=== PATIENT | female | born 1930 | race Caucasian/White ===

== ENCOUNTER 2018-06-17 16:06 | Inpatient (IN) ==
[~2018-06-17 16:06] MED LIST: LIDOCAINE 1% (10mg/ml) 2mL INJ PF SDV ID ONE
--- OUTSIDE RECORDS SUMMARY | 2018-06-17 18:12 | External Medical Summary | Continuity of Care Document ---
:1930 Author Organization [facility] Address [address] [place] [address] Care Team Providers Name Role Phone UNKNOWN Unavailable Unavailable Insurance Providers Payer Name Policy Number Subscriber Name Relationship Medicare [id number] Gudelia Ignacio Self / Same As Patient Bcbs - Plan 65 [id number] Gudelia Ignacio Self / Same As Patient Advance Directives Directive Response Recorded Date/Time Do You Have A Living Will? No 07/30/17 12:06pm Do You Have a DPOA? Yes 07/30/17 12:06pm Problems Active Problems Medical Problem Onset Date Status Trochanteric bursitis, right hip Unknown Acute Hip arthritis Unknown Acute Degenerative arthritis of hip Unknown Acute Diarrhea Unknown Acute Vomiting Unknown Acute Sepsis Unknown Acute Elevated troponin I level Unknown Acute Edema Unknown Chronic Diastolic dysfunction Unknown Chronic Surgical Problem Onset Date Status History of appendectomy Unknown Acute History of hysterectomy Unknown Acute History of cholecystectomy Unknown Acute History of kidney removal Unknown Acute Medications Current Home Medications Medication Dose Units Route Directions Days/Qty Instructions Start Date Valsartan 80 Mg 80 Mg Oral Daily 30 5 Ropinirole Hcl 3 3 Mg Oral Twice A Day Mg 5 Vit C/Vit 1 Cap Oral Daily E/Lutein/Min/[place] 5 -3 150 Mg-30 Unit-5 Mg-150 Mg Cholecalciferol 2,000 Unit Oral Daily (Vitamin D3) 2,000 5 Unit Calcium/Magnesium/ 1 Tab Oral Daily Zinc 1 Tab 5 Vitamin B Comp W-C 1 Tab Oral Daily 1 Tab 5 Omeprazole 20 Mg Oral Daily 30 (Prilosec Otc) 20 6 Mg Docusate Sodium 200 Mg Oral Daily for 30 (Colace) 100 Mg Constipation 7 Levothyroxine 100 Mcg Oral Daily for 30 Sodium 100 Mcg Hypothyroidism 7 Zolpidem Tartrate Unknown Oral Bedtime for 5MG=ONE HALF (Ambien) 10 Mg Dose Insomnia TABLET 7 Metoprolol 25 Mg Oral Daily for 15 Succinate (Toprol Hypertension 7 Xl) 50 Mg Acidophilus/[place] 1 Each Oral Three Times icus 1 Million Daily With Meals 7 Cell Furosemide 40 Mg 40 Mg Oral Twice A Day 60 7 Potassium Chloride 20 Meq Oral Daily 30 20 Meq 7 Past Home Medications Medication Directions Ordered Status Furosemide 20 Mg Tablet, 20 Mg Oral Daily for Diuretic 06/02/15 Discontinued Propranolol Hcl 10 Mg Tablet, 10 Mg Oral Twice A Day 06/02/15 Discontinued Propranolol Hcl (Propranolol Hcl 20 Mg) 20 Bedtime 06/02/15 Discontinued Mg Tablet, 20 Mg Oral Levothyroxine Sodium 75 Mcg Tablet, 75 Mcg Daily 06/02/15 Discontinued Oral Metoprolol Tartrate (Metoprolol Tartrate*) Twice A Day 08/01/16 Discontinued 25 Mg Tablet, 25 Mg Oral Bumetanide (Bumex) 1 Mg Tablet, 1 Mg Oral Daily 08/01/16 Discontinued Cephalexin Monohydrate (Keflex) 500 Mg Twice A Day 05/22/17 Discontinued Capsule, 500 Mg Oral Social History Social History Problem Response Recorded Date/Time History of Street Drugs? No 05/19/2017 1:15am Hx Alcohol Use No 05/19/2017 1:15am Query Response Start Date Stop Date Smoking status: Never smoker Hospital Discharge Instructions No hospital discharge instructions. Plan of Care Discharge Date 07/30/17 11:59pm Prescriptions See Medication Section Functional Status No functional status results. Allergies, Adverse Reactions, Alerts No known allergies. Immunizations No immunization records. Vital Signs Acute Vital Signs Vital Response Date/Time Temperature (Fahrenheit) 97.8 degrees F (97.6 - 99.5) 05/22/2017 5:16am Temperature (Celsius) 36.50 degrees C (36.4 - 37.5) 05/22/2017 5:42pm Pulse Pulse Rate 72 bpm (60 - 100) 05/22/2017 5:42pm Respiratory Rate 18 bpm (10 - 24) 05/22/2017 5:42pm Oxygen Saturation O2 Sat by Pulse Oximetry 95 % (93 - 100) 05/22/2017 5:42pm Blood Pressure 149/64 mm Hg 05/22/2017 5:42pm Blood Pressure Mean 86 mm Hg 05/22/2017 5:42pm Ambulatory Vital Signs Vital Response Date/Time Height 5 ft 2 in 07/24/2017 10:17am Weight 213 lbs 07/24/2017 10:17am Blood Pressure, Sitting, Left Arm 150/48 mm Hg 07/24/2017 10:17am Pulse Rate 60 bpm 07/24/2017 10:17am Body Surface Area 2.11 m2 07/24/2017 10:17am Body Mass Index 39.0 kg/m2 07/24/2017 10:17am Pulse Oximetry Pulse Oximetry 07/24/2017 10:17am Results Laboratory Results Test Name Result Units Flags Reference Collection Result Comments Date/Time Date/Time Prothrombin 11.4 seconds 9.0-11.5 05/19/2017 05/19/2017 Time 7:14am 8:05am Prothromb 1.1 0.9-1.1 05/19/2017 05/19/2017 INR reference interval applies to patients not on Time 7:14am 8:05am anticoagulant therapy. Internationa l Ratio The INR is a calculated value and is used to guide oral anticoagulation therapy. Recommended INR Range Moderate Intensity Warfarin Therapy 2.0 - 3.0 Higher Intensity Warfarin Therapy 2.5 - 3.5 Activated 28 seconds 22-34 05/19/2017 05/19/2017 This test has not been validated for monitoring Partial 7:14am 8:05am unfractionated heparin therapy. For testing that is Thromboplast validated for this type of therapy, please refer to Heparin [place] [address]. White Blood 8.2 1000/cmm 3.8-10.8 05/22/2017 05/22/2017 Count 4:55am 5:38am Red Blood 3.43 MIL/uL L 3.80-5.10 05/22/2017 05/22/2017 Count 4:55am 5:38am Hemoglobin 9.6 g/dL L 11.7-15.5 05/22/2017 05/22/2017 4:55am 5:38am Hematocrit 29.4 % L 35.0-45.0 05/22/2017 05/22/2017 4:55am 5:38am Mean 86 fL 80-100 05/22/2017 05/22/2017 Corpuscular 4:55am 5:38am Volume Mean 28 pg 27-33 05/22/2017 05/22/2017 Corpuscular 4:55am 5:38am Hemoglobin Mean 33 g/dL 32-36 05/22/2017 05/22/2017 Corpuscular 4:55am 5:38am Hemoglobin Concent Red Cell 14.8 % 11.0-15.0 05/22/2017 05/22/2017 Distribution 4:55am 5:38am Width Platelet 231 1000/cmm 140-400 05/22/2017 05/22/2017 Count 4:55am 5:38am Mean 9.1 fL 8.7-11.9 05/22/2017 05/22/2017 Platelet 4:55am 5:38am Volume Granulocytes 67.1 % 05/22/2017 05/22/2017 (%) 4:55am 5:38am Lymphocytes 20.3 % 05/22/2017 05/22/2017 % 4:55am 5:38am Monocytes % 10.2 % 05/22/2017 05/22/2017 4:55am 5:38am Eosinophils 2.0 % 05/22/2017 05/22/2017 % 4:55am 5:38am Basophils % 0.4 % 05/22/2017 05/22/2017 4:55am 5:38am Granulocytes 5.48 1000/uL 1.50-7.80 05/22/2017 05/22/2017 # 4:55am 5:38am Lymphocytes 1.66 1000/uL 0.85-3.90 05/22/2017 05/22/2017 # 4:55am 5:38am Monocytes # 0.83 1000/uL 0.20-0.95 05/22/2017 05/22/2017 4:55am 5:38am Eosinophils 0.16 1000/uL 0.01-0.50 05/22/2017 05/22/2017 # 4:55am 5:38am Basophils # 0.03 1000/uL 0.00-0.20 05/22/2017 05/22/2017 4:55am 5:38am Urine Color DARK YELLOW * YELLOW 05/19/2017 05/19/2017 7:55am 8:12am Urine SLIGHTLY * CLEAR 05/19/2017 05/19/2017 Appearance CLOUDY 7:55am 8:12am Urine 1.025 05/19/2017 05/19/2017 Specific 7:55am 8:12am Reference Range [place] <=1.005-1.035 Urine pH 5.0 5.0-8.0 05/19/2017 05/19/2017 7:55am 8:12am Urine 30 mg/dL * NEGATIVE 05/19/2017 05/19/2017 Protein 7:55am 8:12am Urine NEGATIVE mg/dL NEGATIVE 05/19/2017 05/19/2017 Glucose 7:55am 8:12am Urine NEGATIVE mg/dL NEGATIVE 05/19/2017 05/19/2017 Ketones 7:55am 8:12am Urine Blood NEGATIVE NEGATIVE 05/19/2017 05/19/2017 7:55am 8:12am Urine NEGATIVE NEGATIVE 05/19/2017 05/19/2017 Nitrite 7:55am 8:12am Urine 1+ * NEGATIVE 05/19/2017 05/19/2017 Leukocyte 7:55am 8:12am Esterase Urine NEGATIVE NEGATIVE 05/19/2017 05/19/2017 Bilirubin 7:55am 8:12am Urine 0.2 mg/dL 0.2-1.0 05/19/2017 05/19/2017 Urobilinogen 7:55am 8:12am N/A No NO 05/19/2017 05/19/2017 7:55am 8:12am Urine WBC 20-40 /HPF * NONE-<=5 05/19/2017 05/19/2017 7:55am 8:48am Urine RBC 3-10 /HPF * NONE-<=2 05/19/2017 05/19/2017 7:55am 8:48am Urine 0-5 /HPF NONE-<=5/H 05/19/2017 05/19/2017 Epithelial P 7:55am 8:48am Cells Urine 6-10 /LPF * NONE-0-1 05/19/2017 05/19/2017 Hyaline 7:55am 8:48am Casts Urine 1-3 /LPF * NONE SEEN 05/19/2017 05/19/2017 Granular 7:55am 8:48am Casts Urine Waxy NONE SEEN /LPF NONE SEEN 05/19/2017 05/19/2017 Casts 7:55am 8:48am Urine White NONE SEEN /LPF NONE SEEN 05/19/2017 05/19/2017 Blood Cell 7:55am 8:48am Casts Urine Red NONE SEEN /LPF NONE SEEN 05/19/2017 05/19/2017 Blood Cell 7:55am 8:48am Casts Urine MANY /HPF * NONE SEEN 05/19/2017 05/19/2017 Bacteria 7:55am 8:48am Urine Mucus MODERATE /LPF NONE 05/19/2017 05/19/2017 7:55am 8:48am Urine NONE SEEN /HPF NONE SEEN 05/19/2017 05/19/2017 Amorphous 7:55am 8:48am Sediment Urine Yeast NONE SEEN /HPF NONE SEEN 05/19/2017 05/19/2017 7:55am 8:48am Urine NONE SEEN /HPF NONE SEEN 05/19/2017 05/19/2017 Trichomonas 7:55am 8:48am Urine NONE SEEN NONE SEEN 05/19/2017 05/19/2017 Crystals 7:55am 8:48am Sodium Level 138 mmol/L 135-146 05/22/2017 05/22/2017 4:55am 5:19am Potassium 3.6 mmol/L 3.5-5.0 05/22/2017 05/22/2017 Level 4:55am 5:19am Chloride 102 mmol/L 98-110 05/22/2017 05/22/2017 Level 4:55am 5:19am Carbon 21.6 mmol/L 19.0-30.0 05/22/2017 05/22/2017 Dioxide 4:55am 5:19am Level Anion Gap 14 7-17 05/22/2017 05/22/2017 4:55am 5:19am Glucose 100 mg/dL H 65-99 05/22/2017 05/22/2017 Level 4:55am 5:19am Blood Urea 10 mg/dL 7-05/22/2017 05/22/2017 Nitrogen 4:55am 5:19am Creatinine 0.90 mg/dL H 0.60-0.88 05/22/2017 05/22/2017 4:55am 5:19am Estimated 58 L >60 05/22/2017 05/22/2017 GFR 4:55am 5:19am Units: mL/min/1.73m2) (Non- Estimated 67 >60 05/22/2017 05/22/2017 GFR ( 4:55am 5:19am Units: mL/min/1.73m2) [place]) BUN/Creatini 11 7-05/22/2017 05/22/2017 ne Ratio 4:55am 5:19am Estimated 45.33 ml/min >30 05/22/2017 05/22/2017 Adjusted body GFR 4:55am 5:19am weight used for (Cockcroft-G calculation. akil) Calculated 285 mOSM/kg 280-300 05/22/2017 05/22/2017 Osmolality 4:55am 5:19am Total 6.3 g/dL 6.1-8.1 05/19/2017 05/19/2017 Protein 6:28am 7:07am Albumin 2.9 g/dL L 3.6-5.1 05/19/2017 05/19/2017 6:28am 7:07am Globulin 3.4 g/dL 1.9-3.7 05/19/2017 05/19/2017 6:28am 7:07am Calcium 8.3 mg/dL L 8.6-10.2 05/22/2017 05/22/2017 Level 4:55am 5:19am Corrected 9.2 mg/dL 8.6-10.2-c 05/19/2017 05/19/2017 Calcium alc 6:28am 7:07am Phosphorus 3.2 mg/dL 2.1-4.3 05/19/2017 05/19/2017 Level 7:14am 7:48am Total 0.7 mg/dL 0.2-1.2 05/19/2017 05/19/2017 Bilirubin 6:28am 7:07am Magnesium 2.0 mg/dL 1.5-2.5 05/22/2017 05/22/2017 Level 4:55am 5:19am Alkaline 117 U/L 33-130 05/19/2017 05/19/2017 Phosphatase 6:28am 7:07am Aspartate 38 U/L H 10-35 05/19/2017 05/19/2017 Amino Transf 6:28am 7:07am (AST/SGOT) Alanine 25 U/L 6-29 05/19/2017 05/19/2017 Aminotransfe 6:28am 7:07am rase (ALT/SGPT) AST/ALT 1.520 0.10-40.00 05/19/2017 05/19/2017 Ratio 6:28am 7:07am Thyroid 0.52 uIU/mL 0.40-4.50 05/22/2017 05/22/2017 Stimulating 4:55am 5:31am Hormone (TSH) Troponin T 0.01 ng/mL <0.10 05/19/2017 05/19/2017 Based on WHO criteria for the definition of AMI, the cutoff 7:55am 8:16am (clinical discriminator) value for troponin T is 0.1 ng/mL. Due to the release of kinetics of troponin T, a negative result within the first hours of the onset of symptoms does not rule out myocardial infarction with certainty. If suspected, repeat the test at appropriate intervals. L-Lactate 1.3 mmol/L 0.4-1.8 05/19/2017 05/19/2017 6:28am 7:19am Methicillin- NEGATIVE NEGATIVE 05/19/2017 05/19/2017 Resist S. 3:07am 4:22am aureus Screen Staphylococc NEGATIVE NEGATIVE 05/19/2017 05/19/2017 us aureus 3:07am 4:22am Screen Serology Potential interfering substances include 05/19/20172016 Comments 3:07am 4:22am Anefrin [place] NasalCrom Mele-Synephrine Saline Nasal Moisturizing [place] Zicam Nasal Gel Nasonex Flonase Rhinolast Use of those substances may hinder the replication of DNA which could cause invalid or erroneous results. Procalcitoni 63.18 ng/mL H 0.00-0.09 05/19/2017 05/19/2017 n 6:28am 8:11am </=0.5 ng/mL: Low risk of severe sepsis and/or septic shock. >0.5 -- </=2.0 ng/mL: Moderate risk for progression to severe systemic infection. >2.0 ng/mL: High risk of severe sepsis and or septic shock. Procalcitonin concentrations between 0.5 and 2.0 ng/mL should be interpreted taking into account the patients history. It is recommended to retest PCT within 6-24 hours if any concentrations <2 ng/mL are obtained. Procedures Procedure Status Date Provider(s) 12-lead electrocardiogram Active 05/19/17 Chavarria,Memo C DO 12-lead electrocardiogram Active 05/19/17 Chavarria,Memo C DO 12-lead electrocardiogram Active 05/19/17 Chavarria,Memo C DO X-ray of chest, PA and lateral views Active 05/19/17 Chavarria,Memo C DO 12-lead electrocardiogram Active 05/19/17 Chavarria,Memo C DO 12-lead electrocardiogram Active 05/19/17 Chavarria,Memo C DO 12-lead electrocardiogram Active 05/19/17 Chavarria,Memo C DO 12-lead electrocardiogram Active 05/19/17 Chavarria,Memo C DO 12-lead electrocardiogram Active 05/19/17 Chavarria,Memo C DO 12-lead electrocardiogram Active 05/19/17 Chavarria,Memo C DO 12-lead electrocardiogram Active 05/19/17 Chavarria,Memo C DO 12-lead electrocardiogram Active 05/19/17 Chavarria,Memo C DO 12-lead electrocardiogram Active 05/19/17 Chavarria,Memo C DO 12-lead electrocardiogram Active 05/19/17 Chavarria,Memo C DO 12-lead electrocardiogram Active 05/19/17 Chavarria,Memo C DO 12-lead electrocardiogram Active 05/19/17 Chavarria,Memo C DO 12-lead electrocardiogram Active 05/19/17 Chavarria,Memo C DO 12-lead electrocardiogram Active 05/19/17 Chavarria,Memo C DO 12-lead electrocardiogram Active 05/19/17 Chavarria,Memo C DO 12-lead electrocardiogram Active 05/19/17 Chavarria,Memo C DO 12-lead electrocardiogram Active 05/19/17 Chavarria,Memo C DO 12-lead electrocardiogram Active 05/19/17 Chavarria,Memo C DO 12-lead electrocardiogram Active 05/19/17 Chavarria,Memo C DO 12-lead electrocardiogram Active 05/19/17 Chavarria,Memo C DO 12-lead electrocardiogram Active 05/19/17 Memo Chavarria DO X-ray of chest, single view Active 05/19/17 Memo Chavarria DO Venous duplex scan of right lower extremity Active 05/22/17 Krista Medina DO Encounters Encounter Location Arrival/Admit Date Discharge/Depart Date Attending Provider Departed Clinic [facility] 07/30/17 12:06pm 07/30/17 11:59pm Rachel De Luna [facility] Office Visit [facility] 07/24/17 9:15am [facility] [place] Registered [facility] 07/24/17 9:15am [facility] Discharged [facility] 05/19/17 7:23am 05/22/17 5:45pm [facility] DO
--- OUTSIDE RECORDS SUMMARY | 2018-06-17 18:12 | External Medical Summary | Continuity of Care Document ---
:1930 Author Organization [facility] Address [address] [place] [address] Care Team Providers Name Role Phone Marie Evangelista APRN Unavailable Unavailable Insurance Providers Payer Name Policy Number Subscriber Name Relationship Medicare [id number] Gudelia Ignacio Self / Same As Patient Bcbs - Plan 65 [id number] Gudelia Ignacio Self / Same As Patient Advance Directives Directive Response Recorded Date/Time Do You Have A Living Will? No 05/19/17 1:17am Do You Have a DPOA? Yes 05/21/17 4:26pm Chief Complaint and Reason for Visit Chief Complaint SEPSIS Reason for Visit History of kidney removal Hip arthritis Degenerative arthritis of hip Sepsis Elevated troponin I level Edema Diastolic dysfunction Problems Active Problems Medical Problem Onset Date [...] Units Route Directions Days/Qty Instructions Start Date Furosemide 20 Mg 20 Mg Oral Daily for Diuretic 5 Valsartan 80 Mg 80 Mg Oral Daily 30 5 Ropinirole Hcl 3 3 Mg Oral Twice A Day Mg 5 Vit C/Vit 1 Cap Oral Daily E/Lutein/Min/[place] 5 -3 150 Mg-30 Unit-5 Mg-150 Mg Cholecalciferol 2,000 Unit Oral Daily (Vitamin D3) 2,000 5 Unit Calcium/Magnesium/ 1 Tab Oral Daily Zinc 1 Tab 5 Vitamin B Comp W-C 1 Tab Oral Daily 1 Tab 5 Omeprazole 20 Mg Oral Daily (Prilosec Otc) 20 6 Mg Docusate Sodium 200 Mg Oral Daily for (Colace) 100 Mg Constipation 7 Levothyroxine 100 Mcg Oral Daily for Sodium 100 Mcg Hypothyroidism 7 Zolpidem Tartrate Unknown Oral Bedtime for 5MG=ONE HALF (Ambien) 10 Mg Dose Insomnia TABLET 7 Metoprolol 25 Mg Oral Daily for Succinate (Toprol Hypertension 7 Xl) 50 Mg Acidophilus/[place] 1 Each Oral Three Times icus 1 Million Daily With Meals 7 Cell Cephalexin 500 Mg Oral Twice A Day 20 Use for Monohydrate days 7 (Keflex) 500 Mg Past Home Medications Medication Directions Ordered Status Propranolol Hcl 10 Mg Tablet, 10 Mg Oral Twice A Day 06/02/15 Discontinued Propranolol Hcl (Propranolol Hcl 20 Mg) 20 Mg Bedtime 06/02/15 Discontinued Tablet, 20 Mg Oral Levothyroxine Sodium 75 Mcg Tablet, 75 Mcg Oral Daily 06/02/15 Discontinued Metoprolol Tartrate (Metoprolol Tartrate*) 25 Mg Twice A Day 08/01/16 Discontinued Tablet, 25 Mg Oral Bumetanide (Bumex) 1 Mg Tablet, 1 Mg Oral Daily 08/01/16 Discontinued Social History Social History Problem Response Recorded Date/Time History of Street Drugs? No 05/19/2017 1:15am Hx Alcohol Use No 05/19/2017 1:15am Query Response Start Date Stop Date Smoking status: Never smoker Hospital Discharge Instructions Instructions Discharge Discharge/Dismiss patient: Dismiss/release patient order: Home Discharge instructions: Patient to schedule followup with PCP in 1 week Plan of Care Discharge Date 05/22/17 5:45pm Disposition HOME, ROUTINE DIS/ASST LIVING Instructions/Education Provided CORE MEASURES FOR D/C - [facility] Cephalexin (By mouth) Probiotic (By mouth) Cellulitis (GEN) Prescriptions See Medication Section Care Plan and Goals See Discharge Instructions Section Functional Status No functional status results. [...] Pressure Mean 86 mm Hg 05/22/2017 5:42pm Height 5 ft 2.01 in Weight 226 lb Body Mass Index 41.0 kg/m^2 Ambulatory Vital Signs Vital Response Date/Time Height 5 ft 1 in 08/01/2016 11:27am Weight 214 lbs 08/01/2016 11:27am Temperature, Oral 98.6 degrees F 08/01/2016 11:27am Blood Pressure, Sitting, Right Arm 125/49 mm Hg 08/01/2016 11:27am Pulse Rate 65 bpm 08/01/2016 11:27am Respiration Rate 16 bpm 08/01/2016 11:27am Body Surface Area 2.10 m2 08/01/2016 11:27am Body Mass Index 40.4 kg/m2 08/01/2016 11:27am Pulse Oximetry Pulse Oximetry 08/01/2016 11:27am Results Laboratory Results Test Name Result Units [...] to Heparin [place] [address]. White Blood 8.2 1000/cmm 3.8-10.8 05/22/2017 05/22/2017 [...] 05/19/2017 05/19/2017 Specific 7:55am 8:12am Reference Range [place] <=1.005-1.035 Urine pH 5.0 5.0-8.0 05/19/2017 05/19/2017 [...] 05/22/2017 GFR ( 4:55am 5:19am Units: mL/min/1.73m2) [place]) BUN/Creatini 11 7-25 05/22/2017 05/22/2017 ne Ratio 4:55am 5:19am Estimated 45.33 [...] substances include 05/19/20172016 Comments 3:07am 4:22am Anefrin [place] NasalCrom Mele-Synephrine Saline Nasal Moisturizing [place] Zicam Nasal Gel Nasonex Flonase Rhinolast Use [...] Status Date Provider(s) 12-lead electrocardiogram Active 05/19/17 ChavarriaMemo C DO 12-lead electrocardiogram Active 05/19/17 ChavarriaMemo C DO 12-lead electrocardiogram Active 05/19/17 ChavarriaMemo C DO X-ray of chest, PA and lateral views Active 05/19/17 ChavarriaMemo C DO 12-lead electrocardiogram Active 05/19/17 Chavarria,Memo C DO 12-lead electrocardiogram Active 05/19/17 ChavarriaMemo C DO 12-lead electrocardiogram Active 05/19/17 ChavarriaMemo C DO 12-lead electrocardiogram Active 05/19/17 ChavarriaMemo C DO 12-lead electrocardiogram Active 05/19/17 Chavarria,Memo C DO 12-lead electrocardiogram Active 05/19/17 Chavarria,Memo C DO 12-lead electrocardiogram Active 05/19/17 Chavarria,Memo C DO 12-lead electrocardiogram Active 05/19/17 Chavarria,Memo C DO 12-lead electrocardiogram Active 05/19/17 Chavarria,Memo C DO 12-lead electrocardiogram Active 05/19/17 Chavarria,Memo C DO 12-lead electrocardiogram Active 05/19/17 Chavarria,Memo C DO 12-lead electrocardiogram Active 05/19/17 DeonMemo C DO 12-lead electrocardiogram Active 05/19/17 DeonMemo C DO 12-lead electrocardiogram Active 05/19/17 ChavarriaMemo C DO 12-lead electrocardiogram Active 05/19/17 ChavarriaMemo C DO 12-lead electrocardiogram Active 05/19/17 DeonMemo C DO 12-lead electrocardiogram Active 05/19/17 DeonMemo C DO 12-lead electrocardiogram Active 05/19/17 ChavarriaMemo C DO 12-lead electrocardiogram Active 05/19/17 DeonMemo C DO 12-lead electrocardiogram Active 05/19/17 Christophe Chavarrialas C DO 12-lead electrocardiogram Active 05/19/17 Memo Chavarria C DO X-ray of chest, single view Active 05/19/17 Memo Chavarria DO Venous duplex scan of right lower extremity Active 05/22/17 Krista Medina DO Encounters Encounter Location Arrival/Admit Date Discharge/Depart Date Attending Provider Discharged [facility] 05/19/17 7:23am 05/22/17 5:45pm [facility] Recent Diagnosis Hip arthritis Degenerative arthritis of hip Sepsis Elevated troponin I level Edema Diastolic dysfunction
[2018-06-17] MEDS ORDERED: ACETAMINOPHEN 325 MG TABLET PO PRN (18:42)
[2018-06-17] MEDS ORDERED: POLYETHYL GLYCOL 3350 17gm PACKET PO PRN (18:42)
[2018-06-17] MEDS ORDERED: SENNA + DOCUSATE TABLET PO PRN (18:42)
[2018-06-17] MEDS ORDERED: SALINE FLUSH 10ml SYRINGE IV PRN (18:42)
[2018-06-17] MEDS ORDERED: ONDANSETRON 4 MG/2 ML INJECTION IVP PRN (18:42)
--- NOTE | 2018-06-17 18:49 | Orthopedic Consult Note ---
Orthopedic Consultation HPI - Consultation Info Consult Date: 06/17/18 Attending Physician: Ryan Locke MD - History of Present Illness Gudelia is an 87 y/o female who tripped and fell in a parking lot landing on her left side with immediate pain. She was seen at [facility] in [place] where xrays revealed Left Intertrochanteric hip fracture. Patient also complained of left elbow pain, concern for questionable radial head fracture films reviewed and negative for fracture. 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 She last ate at 1100 today and is not blood thinners. Hospitalist was notified whom agreed to admit patient for medical clearance with consultation to Ortho. Patient NPO for anticipated ORIF of Left IT fracture this evening. History of Right GAY. Review of Systems - Constitutional Constitutional: Present: as per HPI - Musculoskeletal Musculoskeletal: Present: as per HPI Medications Allergies Allergy/AdvReac Type Severity Reaction Status Date / Time No Known Allergies Allergy Verified 06/17/18 18:53 Exam - Constitutional General: cooperative, no acute distress Nutritional Appearance: average body habitus Orientation: alert, oriented x3 - LUE General: no obvious deformity, other (tenderness to palpation over lateral proximal ulna, no tenderness with palpation over radial head) Postoperative Appearance: neurovascullary intact to extremities Neurological: no deficits, normal to light touch Vascular: radial pulse within normal limits - LLE General: other (left leg shortened ) Postoperative Appearance: neurovascullary intact to extremities Neurological: no deficits, normal to light touch Vascular: dorsalis pedis pulse within normal limits - Respiratory Respiratory Exam: non-labored - Cardiac Cardiovascular exam: pedal pulses intact Impression and Recommendation (1) Intertrochanteric fracture of left hip Current visit: Yes Qualifiers: Encounter type: initial encounter Fracture type: closed Status: Acute Dr. Locke discussed need for surgical intervention with ORIF (gamma nail) of left IT hip fracture, including risk, complications, and possibly need for further surgery if fails. Patient NPO for anticipated surgery yet this evening if medically cleared by hospitalist. (2) Left forearm pain Current visit: Yes Status: Acute Xrays negative, nontender over radial head with palpation. Pain likely contusion left lateral forearm. Will monitor, if pain increases will consider repeating films or sling for comfort. Hospital Course Summary Disclaimer: The visit summary below is not to be considered part of the above Progress Note.
[2018-06-17 18:52] VITALS: BMI 39.3
--- NOTE | 2018-06-17 18:53 | History & Physical Report ---
History of Present Illness Date: 06/18/18 Chief complaint: left hip pain HPI: A pleasant 87-year-old female patient of Dr. Vazquez who also follows up with brew house supervisor, Dr. Klein presented to emergency room at [facility] in [place], [place] status post a fall this afternoon. Patient was walking and reportedly tripped on the concrete pavement and fell on her left side. X-ray performed at [facility] emergency room shows left-sided intertrochanteric femur neck fracture and questionable nondisplaced fracture of head of radius on the left elbow x-ray. No reported head injury, no loss of consciousness, no dizziness, no blurred vision, no syncope/near syncope, no neck pain, no neck stiffness, no subjective fever, no chills, no increased sweating, no nausea, no vomiting, no abdominal pain, no flank pain, no dysuria, no burning urination. Patient states she was otherwise in good health until she had her unfortunate fall. Incidentally, patient had a fall 2 years ago and underwent right total hip replacement surgery at Hospital in [place], [place]. Review of Systems Review of systems: Positive left hip pain, positive left elbow pain. No reported head injury, no loss of consciousness, no dizziness, no blurred vision, no syncope/near syncope, no neck pain, no neck stiffness, no subjective fever, no chills, no increased sweating, no nausea, no vomiting, no abdominal pain, no flank pain, no dysuria, no burning urination. Past Medical History Medical History Updates: History of CKD stage III. Restless leg syndrome. Hypertension. Osteoarthritis. Chronic anemia. Hypothyroidism. GERD. Chronic lower extremity edema Surgical History: Hysterectomy with appendectomy. 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 Cholecystectomy. Tonsillectomy. Right-sided total hip replacement surgery 2 years ago Family History: Patient's maternal aunt had a history of diabetes mellitus. No reported family history of coronary artery disease, no reported cancer. Family History: As Above - Social History Smoking status: Never smoker second hand exposure: No Substance use type: does not use Alcohol intake: never Housing: house Current occupational exposures/hazards: No Does patient use chewing tobacco?: No Medications Allergies Allergy/AdvReac Type Severity Reaction Status Date / Time No Known Allergies Allergy Verified 06/17/18 18:53 Exam - Additional findings Additional findings: General: Alert, awake, oriented x3. In mild painful distress. Head: Pupils equal, round, reactive to light and accommodation. Extraocular movements intact. Neck: No elevation in JVP. No pharyngeal erythema noted. Chest: The patient does not use accessory muscles for breathing. Lungs: Breath sounds audible on auscultation bilateral lung restrepo. No wheezing , no rhonchi, no crepitations, no crackles. No pleural rub. CVS: S1, S2 heard on auscultation. Normal rate and rhythm. No murmur, no S3/S4 gallops. Abdomen: Soft, nontender, no distention. Transverse midline scar and longitudinal suprapubic scar, well-healed noted. Bowel sounds appreciated on auscultation. Skin: No rashes, no induration, no erythema. Capillary refill less than 4 seconds. Extremities: Left extremity shortened. Nonpitting pedal edema bilateral lower extremities. No calf tenderness bilaterally. Palpable dorsalis pedis and posterior tibial pulses bilateral lower extremities. Results - Labs CBC & Chem 7: 06/18/18 04:37 06/18/18 04:37 Labs: Labs performed at [facility] in [place], [place] on 06/17/2018 prior to transfer: CMP: Glucose 106, BU and 17, serum creatinine 1.47, GFR 33, sodium 140, potassium 3.4 , chloride 102, carbon dioxide 30, calcium 8.5, AST 22, AST 17, alkaline phosphatase 103, total protein 6.6, albumin 3.1, total bilirubin 0.5 CBC with differential: WBC 5.9, hemoglobin 10.9, hematocrit 34.8, MCV 84, RDW 18.8, platelets 308, neutrophils 58%, lymphocytes 29%, nucleated RBCs 0 - Impressions [facility] [place], [place] on 06/17/2018 prior to transfer - Left hip x-ray shows nondisplaced acute left femoral neck and intertrochanteric fracture Left elbow x-ray shows findings concerning for nondisplaced radial head fracture. Assessment and Plan Assessment and Plan: Assessment: Left femoral neck intertrochanteric fracture, acute Hypertension Hypothyroidism Chronic kidney disease stage III, status post remote nephrectomy Restless leg syndrome Osteoarthritis Chronic anemia Chronic lower extremity edema, on diuretics Plan: Patient admitted to medical floor under the hospitalist service. Orthopedic surgery, Dr. Locke has been consulted. Patient will be in bedrest, nothing by mouth for now. Labs performed at outside facility shows serum potassium of 3.4, will be replaced. Stat CBC, CMP, mag, phosphorus, urinalysis with culture if indicated ordered, results reviewed. EKG performed at outside facility shows normal sinus rhythm with concern for first-degree AV block. No acute ST/T changes. IV Protonix 40 mg daily. IV fluids half-normal saline with 20 mEq potassium chloride at 75 ml per hour. Plan to restart home medication ropinirole, Synthroid, oral metoprolol succinate from tomorrow. IV hydralazine 10 mg every 6 hours as needed for systolic blood pressure greater than 160. Based on available information, patient is low risk candidate for intermediate risk surgery. This was reported to OR nurse of Dr. Locke later in the day. DVT Prophylaxis: SCD's GI Prophylaxis: Protonix Resuscitation Status: Full Code - Physician Narrative Narrative: Date: 06/17/18 Time: 1850 Hospital Course Summary Disclaimer: The visit summary below is not to be considered part of the above Progress Note. Hospital Course: Patient admitted to medical floor under the hospitalist service. Orthopedic surgery, Dr. Locke has been consulted. Patient will be in bedrest, nothing by mouth for now. Labs performed at outside facility shows serum potassium of 3.4, will be replaced. Stat CBC, CMP, mag, phosphorus, urinalysis with culture if indicated ordered. EKG performed at outside facility shows normal sinus rhythm with concern for first-degree AV block. No acute ST/T changes. IV Protonix 40 mg daily. IV fluids half-normal saline with 20 mEq potassium chloride at 75 ml per hour. Based on available information, patient is low risk candidate for intermediate risk surgery. Lab results ordered at our facility awaited.
[2018-06-17] MEDS ORDERED: HYDRALAZINE 20 MG/ML INJECTION IVP PRN (19:08)
[2018-06-17] MEDS ORDERED: CEFAZOLIN 1 G INJECTION IVP ONE (19:44)
[2018-06-17] MEDS ORDERED: LIDOCAINE 1% (10mg/ml) 30ml SDV INJ ONE (19:47)
[2018-06-17] MEDS ORDERED: NS 1,000 ML IV SCH (20:00)
[2018-06-17] MEDS: 1/2 NS with KCL 20mEq 1,000 ML IV SCH ×2 (20:33→23:52)
[2018-06-17] MEDS ORDERED: FentaNYL 250 MCG/5 ML INJECTION ONE (20:58)
[2018-06-17] MEDS ORDERED: MIDAZOLAM 2mg/2ml INJECTION ONE (20:59)
[2018-06-17] MEDS: MORPHINE SULFATE 2mg INJECTION IVP PRN ×2 (21:04→23:51)
[2018-06-17] MEDS ORDERED: PROPOFOL 20 ML ONE (21:45)
[2018-06-17] MEDS ORDERED: BUPIVACAINE 0.5% (5mg/ml) PF 30ml INJ SDV ID ONE (22:05)
[2018-06-17] MEDS ORDERED: LIDOCAINE 1% (10mg/ml) 30ml SDV INJ INFIL ONE (22:15)
--- NOTE | 2018-06-17 22:32 | Anesthesia Preoperative Report ---
Anesthesia Preoperative Record - Date and Time Date: 06/17/18 Preoperative Diagnosis: Lt Hip FX NPO Since Date: 06/17/18 (>8hrs) NPO Since Time: 00:00 Allergies/Adverse Reactions: Allergies Allergy/AdvReac Type Severity Reaction Status Date / Time No Known Allergies Allergy Verified 06/17/18 18:53 - Vital Signs Vital Signs: Temperature 97.1 F 06/17/18 21:04 Pulse Rate 89 06/17/18 21:04 Respiratory Rate 14 06/17/18 21:13 Blood Pressure 154/67 H 06/17/18 21:04 Pulse Oximetry 92 06/17/18 21:13 Height and Weight: Height 5 ft 2 in Weight 97.6 kg Body Mass Index 39.3 - Medications Inpatient Medications: Current Medications Acetaminophen (Tylenol) 325 - 650 mg PO Q5H PRN PRN Reason: Discomfort Bupivacaine HCl (Marcaine Pf 0.5% Inj) 30 ml ID O ONE Stop: 06/17/18 22:06 Cefazolin Sodium (Kefzol 1 Gm Vial) 2 g IVP PREOP ONE Stop: 06/17/18 19:45 Last Admin: 06/17/18 21:32 Dose: 2 g Hydralazine HCl (Apresoline) 10 mg IVP Q6HR PRN PRN Reason: Hypertension Potassium Chloride/Sodium Chloride (1/2 Ns With Kcl 20meq Premix) 1,000 mls @ 75 mls/hr IV .[id number] [facility] Last Admin: 06/17/18 20:33 Dose: Not Given Sodium Chloride (Normal Saline) 1,000 mls @ 50 mls/hr IV .Q20H [facility] Last Admin: 06/17/18 19:48 Dose: 50 mls/hr Lidocaine HCl (Xylocaine-Mpf 1% Vial) 1 mg ID O ONE Stop: 06/17/18 06:01 Last Admin: 06/17/18 19:48 Dose: Not Given Lidocaine HCl (Xylocaine-Mpf 1%) 30 ml INFIL O ONE Stop: 06/17/18 22:16 Morphine Sulfate (Morphine Sulf 2 Mg Inj) 1 - 2 mg IVP Q2H PRN PRN Reason: Pain Last Admin: 06/17/18 21:04 Dose: 2 mg Ondansetron HCl (Zofran) 4 mg IVP Q6H PRN PRN Reason: Nausea &/or vomiting Pantoprazole Sodium (Protonix Iv) 40 mg IVP DAILY XENA Polyethylene Glycol (Miralax) 17 gm PO DAILY PRN PRN Reason: Constipation Senna/Docusate Sodium (Senna Plus Tablet) 1 tab PO BID PRN PRN Reason: Constipation Sodium Chloride (Iv Flush) 10 ml IV PRN PRN PRN Reason: Flushing Is Patient on Beta Annie?: No - Medical History Cardiovascular: Reports: Hypertension Gastrointestional: Reports: Gastroesophageal Reflux Disease (well controlled with meds) Neuro/Musculoskeletal: Reports: Other (Restless leg syndrome) Renal/Endocrine: Reports: Thyroid Disease (hypo), Other (CKD stage 3) Other History: DENIES: Anesthesia Reactions - Surgical History Anesthesia Reactions: Other (slow to wake) Hx Family Anesthesia Reaction: No History of Motion Sickness: No - Social History Smoking Status: Never smoker Hx Chewing Tobacco Use: No Second Hand Exposure: No Substance Use Type: does not use Alcohol Intake: never - Pertinent Findings Laboratory: CBC and BMP 06/17/18 19:27 06/17/18 19:27 BMP 06/17/18 19:27 Sodium 144 Potassium 3.7 Chloride 104 Carbon Dioxide 29 BUN 19.0 H Creatinine 1.2 Glucose 108 Calcium 8.5 Cardiac Enzymes 06/17/18 Range/Units 19:27 Troponin I < 0.012 (0-0.12) ng/ml Liver Function 06/17/18 Range/Units 19:27 Total Bilirubin 0.80 (0.20-1.30) MG/DL AST 26 (14-36) U/L ALT 15 (1-35) U/L Alkaline Phosphatase 100 (38-126) U/L Albumin 3.7 (3.5-5.0) g/dL - Physical Exam Respiratory Exam: Present: lungs clear, bilateral breath sounds equal Cardiovascular Exam: Present: regular rate and rhythm - Airway Assessment Mallampati Score: III TMD: 3 Fingerbreadths Neck Extension: fair Teeth: other (edentulous- denture currently out) Overall Assessment: may be difficult mask vent, may be difficult intubation - ASA ASA Score: 3 - Plan Anesthesia: General Inhalation Gases - Discussion Discussion: Discussed risks/options/alternatives of anesthesia and questions answered. Patient consents. Nursing pain assessment noted. Present for Discussion: family member Attestation Statement: Prior to the delivery of any anesthetic medication, I examined the patient, developed the plan, obtained the patient's consent and discussed the risk and benefits of the procedure with the patient/guardian. - Additional Information Seen by Anesthesia: Yes
--- NOTE | 2018-06-17 23:14 | Anesthesia Postoperative Note ---
- Date and Time Date: 06/17/18 Time: 23:13 - Status Patient Participated in Evaluation: Patient Participated in Person Vital Signs: Temperature 97.7 F 06/17/18 22:58 Pulse Rate 81 06/17/18 23:05 Respiratory Rate 18 06/17/18 23:05 Blood Pressure 146/65 H 06/17/18 23:05 Pulse Oximetry 98 06/17/18 23:05 Respiratory Function: Airway Patent Cardiovascular Function: Regular Pulse EKG: Sinus Rhythm Mental Status: Alert and Oriented Pain Intensity: 2 Hydration: IV Infusing Complications During Recover: None Apparent - Follow-Up Instructions Instructions: Per Surgeon
[2018-06-17] MEDS ORDERED: ENOXAPARIN 40 MG/0.4 ML INJECTION SQ SCH (23:35)
[2018-06-17] MEDS ORDERED: NOZIN NASAL SWAB NAS ONE (23:35)
[2018-06-17] MEDS ORDERED: DiphenhydrAMINE 50 MG/ML INJECTION IVP PRN (23:35)
[2018-06-17] MEDS ORDERED: TRAMADOL 50 MG TABLET PO PRN (23:35)
[2018-06-17] MEDS ORDERED: DiphenhydrAMINE 25 MG CAPSULE PO PRN (23:35)
[2018-06-17] MEDS: PANTOPRAZOLE 40 MG INJECTION IVP SCH ×2 (23:38→23:50)
[2018-06-18] MEDS: ROPINIROLE 3 MG TABLET PO SCH ×3 (01:54→14:59)
[2018-06-18] MEDS: CEFAZOLIN 2 G in NS 100 ML IV SCH ×2 (04:41→13:21)
[2018-06-18] MEDS: NOZIN NASAL SWAB NAS SCH ×3 (04:42→14:59)
[2018-06-18 04:48] VITALS: RESP 18
[2018-06-18] MEDS: MORPHINE SULFATE 2mg INJECTION IVP PRN ×2 (06:08→13:24)
--- NOTE | 2018-06-18 08:36 | Remote Fluorsocopy Report ---
Indication: ORIF L HIP PROCEDURE: RF hip LT 2 view: Encounter: Initial Comparison: None. Findings: Three intraoperative spot views of left hip pinning demonstrate an intramedullary lane with a dynamic hip screw in the left femoral neck. The alignment appears anatomic. Impression: Intraoperative evaluation for left hip pinning. .
[2018-06-18] MEDS: PANTOPRAZOLE 40 MG INJECTION IVP SCH (08:48)
[2018-06-18] MEDS ORDERED: DOCUSATE SODIUM 100 MG CAPSULE PO SCH (09:00)
--- NOTE | 2018-06-18 09:10 | Operative Note ---
DATE OF OPERATION 06/17/2018 PREOPERATIVE DIAGNOSIS Left three-part intertrochanteric hip fracture. POSTOPERATIVE DIAGNOSIS Left three-part intertrochanteric hip fracture. PROCEDURE Open reduction, intramedullary fixation of left intertrochanteric hip fracture. SURGEON Ryan Locke MD SKIVER OPERATOR Kim Norman APRN COMPLICATIONS None ANESTHESIA General EBL AND FLUIDS Please see Anesthetic records. DESCRIPTION OF PROCEDURE Mrs. Ignacio and her left hip were identified and marked in the preoperative holding area. She was brought back to the operating suite and placed under general anesthesia. She was then placed onto the fracture table. Both feet were placed in well-padded traction boots. The right leg was placed into extension without traction. The left leg was placed into traction and internal rotation. Reduction was checked with fluoroscopic imaging. The left lower extremity was then prepped and draped in my normal sterile fashion. Time-out was performed. A 3 cm incision was made proximal to the greater trochanter. Guidewire was passed into the proximal femur. This was then overreamed. At this point, I made a second incision at the level of the lesser trochanter. I placed a bone hook around the femoral neck to help reduce the femoral neck into the calcar. This was held in place by my special education educational assistant as I passed the short gamma nail into the proximal femur. I used the aiming arm and then a guide pin to place the lag screw into a center-center location to the femoral head. I then used a compression device to obtain compression at the fracture site. The screw was then locked proximally. A locking screw was then placed distally using the aiming arm. The aiming arm was removed. Multiple fluoroscopic images including live shots were used to ensure good fracture reduction and hardware placement. The wounds were thoroughly irrigated before being closed in layers. She was taken out of the traction boots and taken off the fracture table. She was then allowed to wake from general anesthesia and taken to the recovery room under the care of Anesthesia. She tolerated the procedure well. There were no complications. JEANE
[2018-06-18 12:06] VITALS: BP 125/53; PULSE 77; TEMP 98
[2018-06-18 13:09] VITALS: O2SAT 95
--- NOTE | 2018-06-18 13:56 | Orthopedic Progress Note ---
Date: Date: 06/18/18 Time: 1353 Subjective/Severity of Illness: Gudelia is lying in bed this morning during rounds. She is post op day 1 from ORIF with short gamma nail of left IT hip fracture. She reports her pain has been well controlled with the Tramadol. Left forearm pain has also improved since yesterday. Denies any CP, SOA, nausea. Hgb 10.6 Orthopedic Exam Vital signs: Temperature 98.0 F 06/18/18 12:05 Pulse Rate 77 06/18/18 12:05 Respiratory Rate 18 06/18/18 12:05 Blood Pressure 125/53 06/18/18 12:05 Pulse Oximetry 95 06/18/18 12:30 - Constitutional General Appearance: Present: alert, orientated x3, cooperative - Respiratory Exam Present: CTA bilaterally, non-labored - Cardiovascular Exam Present: Regular Rate/Rhythm, pedal pulses intact, murmur - Abdominal Exam Present: soft. Absent: tenderness, distended - Extremities Exam Present: pulses intact. Absent: calf tenderness - Dressing Dressing: dry, intact, no drainage Comments: 4 telfa dressing left lateral thigh - Neurological Exam Present: intact to light touch, no deficits - Psychiatric Exam Present: alert, oriented - Labs Result Diagrams: 06/18/18 04:37 06/18/18 04:37 Abnormal lab results 06/17/18 06/17/18 06/18/18 Range/Units 19:27 19:27 01:58 WBC 12.4 H (4.5-11.0) T/MM3 Hgb 11.3 L (12-16) GM/DL Hct 35.7 L (36-46) % MCHC (31-37) GM/DL RDW Std Deviation 57.4 H (36.9-50.2) FL Neut % (Auto) 80.8 H (33-66) % Lymph % (Auto) 12.3 L (23-45) % Neut # (Auto) 10.0 H (1.8-7.7) T/MM3 BUN 19.0 H (7-17) MG/DL Glucose (65-110) MG/DL Calcium (8.4-10.2) MG/DL Ur Leukocyte Esterase Trace A (NEGATIVE) 06/18/18 06/18/18 Range/Units 04:37 04:37 WBC 11.2 H (4.5-11.0) T/MM3 Hgb 10.6 L (12-16) GM/DL Hct 34.9 L (36-46) % MCHC 30.4 L (31-37) GM/DL RDW Std Deviation 60.8 H (36.9-50.2) FL Neut % (Auto) 77.2 H (33-66) % Lymph % (Auto) 14.5 L (23-45) % Neut # (Auto) 8.6 H (1.8-7.7) T/MM3 BUN (7-17) MG/DL Glucose 113 H (65-110) MG/DL Calcium 8.0 L (8.4-10.2) MG/DL Ur Leukocyte Esterase (NEGATIVE) H & H 06/17/18 06/18/18 Range/Units 19:27 04:37 Hgb 11.3 L 10.6 L (12-16) GM/DL Hct 35.7 L 34.9 L (36-46) % Orthopedic Assessment and Plan (1) Intertrochanteric fracture of left hip Status: Acute Qualifiers: Encounter type: initial encounter Fracture type: closed Assessment and Plan: Current anti-coagulation protocol with Lovenox SQ and SCDs for added VTE prophylaxis. Hospitalist managing medically. PT/OT services to improve independent function. Discharge Planning per Case Management. (2) Left forearm pain Status: Acute Hospital Course Summary Disclaimer: The visit summary below is not to be considered part of the above Progress Note. Hospital Course: Patient admitted to medical floor under the hospitalist service. Orthopedic surgery, Dr. Locke has been consulted. Patient will be in bedrest, nothing by mouth for now. Labs performed at outside facility shows serum potassium of 3.4, will be replaced. Stat CBC, CMP, mag, phosphorus, urinalysis with culture if indicated ordered. EKG performed at outside facility shows normal sinus rhythm with concern for first-degree AV block. No acute ST/T changes. IV Protonix 40 mg daily. IV fluids half-normal saline with 20 mEq potassium chloride at 75 ml per hour. Based on available information, patient is low risk candidate for intermediate risk surgery. Lab results ordered at our facility awaited.
--- NOTE | 2018-06-18 14:26 | Discharge Summary ---
Discharge Information Date of admission: 06/17/18 17:53 Anticipated date of discharge: 06/18/18 Attending Physician: Rashaun Jeff MD Primary care physician: Shara Vazquez MD Consults: Dr Locke- Orthopedics Left femoral neck intertrochanteric fracture, acute Hypertension Hypothyroidism Chronic kidney disease stage III, status post remote nephrectomy Restless leg syndrome Osteoarthritis Chronic anemia Chronic lower extremity edema, on diuretics - Procedures Procedures: 06/17/18- Open reduction, intramedullary fixation of left intertrochanteric hip fracture. Dr. Locke - Laboratory Labs: 06/18/18 04:37 06/18/18 04:37 - Microbiology N/A - Radiology Radiology: 06/17/18-hip [id number]: Intraoperative evaluation for left hip pinning. - Pathology None History of Present Illness HPI: A pleasant 87-year-old female patient of Dr. Vazquez who also follows up with funeral arrangement director, Dr. Klein presented to emergency room at [facility] in [place], [place] status post a fall this afternoon. Patient was walking and reportedly tripped on the concrete pavement and fell on her left side. X-ray performed at [facility] emergency room shows left-sided intertrochanteric femur neck fracture and questionable nondisplaced fracture of head of radius on the left elbow x-ray. No reported head injury, no loss of consciousness, no dizziness, no blurred vision, no syncope/near syncope, no neck pain, no neck stiffness, no subjective fever, no chills, no increased sweating, no nausea, no vomiting, no abdominal pain, no flank pain, no dysuria, no burning urination. Patient states she was otherwise in good health until she had her unfortunate fall. Incidentally, patient had a fall 2 years ago and underwent right total hip replacement surgery at Hospital in [place], [place]. Objective Vital signs: Temperature 98.0 F 06/18/18 12:05 Pulse Rate 77 06/18/18 12:05 Respiratory Rate 18 06/18/18 12:05 Blood Pressure 125/53 06/18/18 12:05 Pulse Oximetry 95 06/18/18 12:30 Height/Weight/BMI: Height 1.57 m Weight 99.2 kg Body Mass Index 39.3 - Constitutional Present: no acute distress, well nourished, well developed - Routine HEENT Exam Eye: Present: EOMI ENT: Present: mucous membranes moist, dentition normal - Routine Respiratory Exam Present: CTA bilaterally. Absent: wheezes - Routine Cardiovascular Exam Present: RRR, S1, S2. Absent: murmur - Routine Abdominal Exam Present: soft, normoactive bowel sounds, non distended. Absent: tenderness - Routine Extremities Exam Present: pulses intact Comments: Postoperative Left hip pain - Routine Skin Exam Present: intact, dry, warm - Routine Neurological Exam Present: alert, oriented X3, CN II-XII intact - Routine Lymphatic Exam Lymphatic: Absent: adenopathy - Routine Psychiatric Exam Present: normal affect, cooperative Hospital Course This is a general summary of the patient's hospital course. For more details refer to the complete medical record. Hospital course: 06/17/18- Admission Patient admitted to medical floor under the hospitalist service. Orthopedic surgery, Dr. Locke has been consulted. Patient will be in bedrest, nothing by mouth for now. Labs performed at outside facility shows serum potassium of 3.4, will be replaced. Stat CBC, CMP, mag, phosphorus, urinalysis with culture if indicated ordered. EKG performed at outside facility shows normal sinus rhythm with concern for first-degree AV block. No acute ST/T changes. IV Protonix 40 mg daily. IV fluids half-normal saline with 20 mEq potassium chloride at 75 ml per hour. Based on available information, patient is low risk candidate for intermediate risk surgery. Lab results ordered at our facility awaited. 06/18/18- Discharge Gudelia underwent ORIF of the left intertrochanteric hip fracture under the care of Dr. Locke yesterday, 06/17/18. Postoperatively, she has been somewhat fatigued. A she is seen and examined with family at her side. She continues to utilize oxygen to maintain adequate saturations, she also continues to have Kelley catheter in place as she is day 1 postop. She has been accepted and is willing to go to the inpatient rehabilitation unit today for postoperative strengthening and improved function. It is her goal that she will return home independently with she resides in an apartment in [place], [place] under the primary care of Dr. Vazquez . The hospitalist services will continue to follow patient medically while on the IRU unit. She will require 30 days of Lovenox subcutaneous daily for postoperative anticoagulation. Will work on weaning off oxygen and remove Kelley catheter. Time spent with patient: discharge greater than 30 minutes Resuscitation Status: Full Code Discharge Plan - Discharge Disposition Discharge Date: 06/18/18 Disposition: 62 To [facility] *Condition: Stable Reason For Visit (Visit label in EMR): Lt Hip FX - Discharge Medications *Discharge Medications: Continue Docusate Sodium [Colace] 1 cap PO PRN PRN PRN Reason: Stool Softening Levothyroxine Sodium 100 mcg PO DAILY Ropinirole [Requip] 3 mg PO TID Omeprazole Magnesium [Prilosec Otc] 20 mg PO DAILY Tramadol HCl [Ultram] 25 mg PO BID C,E,Zinc,Copper 11/Opfaj5i/Lut [Ocuvite Adult 50 Plus Softgel] 1 each PO DAILY Iron Polysaccharide Complex [Niferex] 1 cap PO BID Calcium Carb/D3/Magnesium/Zinc [Mahesh Mag Zinc-D3 Tablet] 1 each PO DAILY Vitamin B Complex [Super B-50 Complex] 1 each PO DAILY Ergocalciferol (Vitamin D2) [Vitamin D2] 1 tab PO DAILY Metoprolol Succinate (XL) [Toprol Xl] 25 mg PO DAILY Vit C/Vit E/Lutein/Min/[place]-3 [Ocuvite Softgel] 1 cap PO DAILY Torsemide [Demadex] 1 tab PO DAILY - Discharge Packet/Instructions *Diet: Resume normal diet as tolerated *Activity: Continue the exercises you were given in the hospital three times a day. Your therapist will provide you with a home therapy program prior to your hospital discharge. As you feel stronger, increase the number of repetitions you do in each session. Please check with us before you swim, use a whirlpool, drive or ride a bicycle *Pain Management/Treatment: Ice packs may be used, and will also help with the pain. *Wound Care: In most cases, a Mepilex dressing will be placed at the time of surgery. This dressing will not need to be covered while showering. Leave dressing in place until your follow-up appointment as long as it remains clean, dry and stuck down well around the edges. Call your Doctor if you encounter a problem with your dressing. Please avoid submerging your incision until it is completely healed, once the Mepilex dressing is removed. This includes bathtubs , swimming pools, and hot tubs. DO NOT USE ALCOHOL, PEROXIDE, OR OINTMENTS of any kind on your incision. *Expected Signs/Symptoms: Some swelling around the incision, as well as in your feet and legs is normal. To help with this, elevate your feet on a footstool when sitting in a chair, and do the ankle pumps and circles whenever you are sitting still. Muscle action helps to move collected fluid out of the tissues and improve circulation. Ice packs may be used, and will also help with the pain. Report any persistent swelling, calf tenderness, increase in pain, or pain in the calf with warmth, or redness to your doctor. *Notify Physician if: Report any complications to my office immmediately. This includes excessive bleeding, wound breakdown, redness around the wound, uncontrolled pain, or fever over 101 on 3 different measurements. Eat a balanced diet and get plenty of rest. *During Business Hours Contact: If you have any questions or concerns, please call during regular office hours ([phone]). *After Business Hours Contact: If you have any problems or need to reach a physician after hours or on the weekend please call the hospital's main number [phone] to have your physician paged. *Pending Lab/Results: No Pending Lab - IRU/GEN Discharge/Transfer - Referrals/Follow Up - Patient Handouts Patient Handouts: [facility] Postop Instructions - Dismissal Complete Discharge Instructions are:: Complete Physician Narrative - Narrative Physician: Rashaun Jeff MD Attestation Narrative: Date: 06/18/18 Time: 1410 I have independently interviewed and examined patient. Patient chart reviewed. Case discussed with my FASHION COORDINATOR. Care plan developed with my supervision, agree with above. A pleasant 87-year-old female patient tripped on concrete pavement and fell on her left side following which she had significant left-sided hip pain. Orthopedic surgery at our facility was contacted by [facility] emergency room in [place], [place] and thereafter hospitalist service was contacted at [facility] for patient to be admitted and orthopedic surgery to consult. X-ray showed left-sided intertrochanteric fracture neck femur. EKG, CBC , CMP, other labs, urinalysis, imaging studies were reviewed and patient determined to be low risk candidate for intermediate risk surgery later on day of admission, 06/17/2018. Patient underwent left-sided ORIF procedure for intertrochanteric femur neck fracture. Following surgery, patient evaluated and accepted by IRU for further physical therapy and rehabilitation and will be transferred. Hospitalist service will continue consulting for patient care while in IRU.
[2018-06-18] MEDS: 1/2 NS with KCL 20mEq 1,000 ML IV SCH (14:35)
[2018-06-18] MEDS ORDERED: SENNOSIDES 8.6 MG TABLET PO SCH (21:00)
[2018-06-18] MEDS ORDERED: SENNOSIDES 8.6 MG TABLET PO PRN (22:41)
[2018-06-19] MEDS ORDERED: BISACODYL 10 MG SUPPOSITORY RECTALLY SCH (20:00)
== END 2018-06-18 15:25 | DRG 482 ==
LOC: EDSTATUS 16:20 → SRG 17:53
PROVIDERS: ADMIT Internal Medicine; ATTEND Internal Medicine

== ENCOUNTER 2018-06-18 15:23 | Inpatient (IN) ==
[2018-06-18 15:38] VITALS: BMI 40.2
[2018-06-18] MEDS ORDERED: POLYETHYL GLYCOL 3350 17gm PACKET PO PRN (15:40)
[2018-06-18] MEDS ORDERED: DiphenhydrAMINE 25 MG CAPSULE PO PRN (15:40)
[2018-06-18] MEDS: ROPINIROLE 3 MG TABLET PO SCH (20:20)
[2018-06-18] MEDS: DOCUSATE SODIUM 100 MG CAPSULE PO SCH (20:21)
[2018-06-18] MEDS: ENOXAPARIN 40 MG/0.4 ML INJECTION SQ SCH (22:57)
[2018-06-19] MEDS: ACETAMINOPHEN 325 MG TABLET PO PRN ×3 (03:55→16:45)
[2018-06-19] MEDS: TRAMADOL 50 MG TABLET PO PRN ×3 (06:27→19:29)
[2018-06-19] MEDS: ROPINIROLE 3 MG TABLET PO SCH ×3 (08:43→20:53)
[2018-06-19] MEDS: SENNOSIDES 8.6 MG TABLET PO PRN (08:44)
[2018-06-19] MEDS: DOCUSATE SODIUM 100 MG CAPSULE PO SCH ×2 (08:44→20:53)
--- NOTE | 2018-06-19 09:00 | Orthopedic Progress Note ---
Date: Date: 06/19/18 Time: 854 Subjective/Severity of Illness: Gudelia is up in the wheelchair this morning working with therapy. She reports pain with ambulation on left hip this morning. Left arm pain continues to improve. Denies CP, SOA, nausea. Orthopedic Exam Vital signs: Temperature 97.9 F 06/19/18 07:00 Pulse Rate 84 06/19/18 07:00 Respiratory Rate 12 06/19/18 07:00 Blood Pressure 162/57 H 06/19/18 07:00 Pulse Oximetry 96 06/19/18 08:45 - Constitutional General Appearance: Present: alert, orientated x3, cooperative - Respiratory Exam Present: non-labored - Cardiovascular Exam Present: pedal pulses intact - Extremities Exam Present: pulses intact - Dressing Dressing: dry, intact, no drainage - Neurological Exam Present: intact to light touch, no deficits - Psychiatric Exam Present: alert, oriented - Labs Result Diagrams: 06/19/18 04:17 06/19/18 04:17 Abnormal lab results 06/19/18 06/19/18 Range/Units 04:17 04:17 RBC 3.34 L (4.00-5.20) M/MM3 Hgb 8.8 L D (12-16) GM/DL Hct 28.7 L D (36-46) % MCHC 30.7 L (31-37) GM/DL RDW Std Deviation 58.7 H (36.9-50.2) FL Neut % (Auto) 71.8 H (33-66) % Lymph % (Auto) 16.6 L (23-45) % Irwin % (Auto) 9.7 H (0-9.0) % Glucose 124 H (65-110) MG/DL Calcium 7.8 L (8.4-10.2) MG/DL H & H 06/19/18 Range/Units 04:17 Hgb 8.8 L D (12-16) GM/DL Hct 28.7 L D (36-46) % Orthopedic Assessment and Plan (1) S/P ORIF (open reduction internal fixation) fracture Status: Acute Assessment and Plan: Post-op day 2. Patient has scheduled Tylenol, Aleve and Tramadol 50-100mg prn, so far she has utilized 50mg at a time, encouraged to try 100mg q6hr prn. Current anti-coagulation protocol with Lovenox for VTE prophylaxis. SCD's for added protection PT/OT services to improve independent function. Hospital Course Summary Disclaimer: The visit summary below is not to be considered part of the above Progress Note.
--- NOTE | 2018-06-19 09:38 | IRU 24Hr Post Admit Eval ---
24 Hr Post Admission Physical - Relevant Changes Relevant Changes: No Reviewed: I have reviewed the patient's information and concur with the finding and results of the pre-admission screen. Certification: I certify the patient for rehabilitation. - Patient Condition (1) S/P ORIF (open reduction internal fixation) fracture Status: Acute Code(s): Z96.7 - Presence of other bone and tendon implants; Z87.81 - Personal history of (healed) traumatic fracture Classification: Present on IRF Admission, IRF Tx That Should Address Diagnosis, Diagnosis Requiring Medical Follow Up (2) Hypertension Status: Chronic Qualifiers: Hypertension type: essential hypertension Qualified Code(s): I10 - Essential (primary) hypertension Code(s): I10 - Essential (primary) hypertension Classification: Present on IRF Admission, IRF Tx That Should Address Diagnosis, Diagnosis Requiring Medical Follow Up (3) Acute respiratory failure with hypoxemia Status: Acute Code(s): J96.01 - Acute respiratory failure with hypoxia Classification: Present on IRF Admission, IRF Tx That Should Address Diagnosis, Diagnosis Requiring Medical Follow Up (4) Acute blood loss anemia Status: Acute Code(s): D62 - Acute posthemorrhagic anemia Classification: Present on IRF Admission, IRF Tx That Should Address Diagnosis, Diagnosis Requiring Medical Follow Up (5) CKD (chronic kidney disease) stage 3, GFR 30-59 ml/min Status: Chronic Code(s): N18.3 - Chronic kidney disease, stage 3 (moderate) Classification: Present on IRF Admission, Diagnosis Requiring Medical Follow Up - Prior Functional Status Lives With: Alone Residence Type: Independent Living Assitive Devices: Four Wheeled Walker Prior Functional Status: Indep. at home or school, Depend. w/ IADL - Current Functional Status Current Level of Function: Currently the patient requires total assistance for transfers from bed to chair to wheelchair. She requires use of a rolling walker but is unable to ambulate. She requires supervision for eating. She has declined attempts at ADLs by therapy prior to admission however she did agree to participate in OT and PT on acute inpatient rehabilitation. Failed Alternative Therapy: Arrived from Acute Care Patient Requirements: The patient requires oversight by rehabilitation physician to manage their rehabilitation treatment plan and multidisciplinary approach to care that can only be provided in an IRF and requires a multidisciplinary approach to care, provided by professional PTs, OTs, STs, dieticians, RTs, rehabilitation nurses and is not available in lesser levels of care. Limitations Req: Mobility Impairment, ADL Impairment Physical Therapy Minutes: 90 Occupational Therapy Minutes: 90 Therapy: The patient is to receive therapy at least 5 days a week. - Complications/Comorbidities Impact on Functional Outcomes: The patient's left elbow pain, sustained at the time of her fall, will negatively impact her functional outcome. The patient's acute on chronic anemia may result in hypotension which would negatively impact her functional outcome. Barriers to Discharge: Weakness, Endurance, Pain Control - Plan to Avoid Complications Plan to Avoid Complications: The patient cannot receive this care in a lesser intensive setting such as Longterm or Outpatient Therapy due to the patient requiring the following : She requires close monitoring of her oxygen levels in view of the acute respiratory failure with hypoxemia. She requires close monitoring of her blood count in view of the acute on chronic anemia. She requires a multidisciplinary approach with PT and OT in view of the hip fracture in addition to the left elbow pain. All this requires medical supervision and 24 hour rehabilitation nursing for her recovery.
--- NOTE | 2018-06-19 11:17 | Consult Note ---
Consult Information - Data of Consult Consult date: 06/19/18 Requesting Physician: Orlin Galdamez MD Primary Care Provider: Shara Vazquez MD - Consult Narrative Reason for consult: medical management, hypertension, hypothyroid History of present illness: Gudelia Ignacio is a pleasant 87-year-old female patient of Dr. Vazquez who also follows with Dr. Klein, nephrology. On 06/17/18, she reportedly had a mechanical fall at home and sustained a left-sided hip fracture. She reports that she was walking and tripped on the concrete pavement causing her to fall onto her left side. She denies any other injury or loss of consciousness. She was initially seen at [facility] in [place], [place] and x-rays revealed a left-sided intertrochanteric femur neck fracture as well as a questionable nondisplaced fracture of the head of the radius on the left elbow. She was transferred to [facility] [place] and admitted to inpatient status for orthopedic evaluation. She underwent successful ORIF on 06/17/[address] Locke. Her initial hemoglobin prior to surgery was 11.3. She admits to history of chronic anemia. She also was noted to have mild hypokalemia which was corrected with supplements. Post- operatively, she has done well. She continues to utilize oxygen to maintain adequate saturations. She denies use of home oxygen. Her hemoglobin has trended down slightly post-operatively (hgb 8.8) though she remain asymptomatic. She was transferred to IRU for postoperative strengthening and improvement in her functional abilities with the goal of returning to her home where she lives independently. The hospitalist service was consulted for continued medical management. She has a known history of hypertension for which she takes metoprolol 25mg daily. During her acute hospitalization, IV hydralazine was unitized given her NPO status prior to surgery. Past Medical History Medical History: Medical History (Last Updated 06/19/18 @ 11:22 by JAYAN Gaitan) Chronic anemia Chronic kidney disease (CKD), stage III (moderate) s/p remote nephrectomy Edema extremities chronic, lower extremities GERD (gastroesophageal reflux disease) Hypertension Hypothyroid Osteoarthritis Restless leg syndrome S/P ORIF (open reduction internal fixation) fracture left - 06/17/18, Dr. Locke. Surgical History: Hysterectomy with appendectomy. 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 Cholecystectomy. Tonsillectomy. Right-sided total hip replacement surgery 2 years ago Family History: No reported family history of CAD or cancer. Family History: As Above - Social History Smoking status: Never smoker second hand exposure: No Substance use type: does not use Alcohol intake frequency: does not drink Housing: house Household members: none service: No Current occupational status: retired Does patient use chewing tobacco?: No Current residence: Apartment/Private Home Social history: PCP - Dr. Vazquez. Ortho- Dr. Locke. Nephro - Dr. Klein. Review of Systems All systems PM: 10-point ROS was reviewed, no additional remarkable complaints except - Constitutional Constitutional: Present: fatigue, weakness (generalized). Absent: chills, fever (s) - EENMT Eyes: Absent: diplopia, loss of vision, photophobia Ears: Absent: ear pain Balance: Absent: falling to one side Nose: Absent: nosebleeds, allergies Mouth/Throat: Absent: sore throat, changes in swallowing, dry mouth - Cardiovascular Cardiovascular: Present: edema, heart murmur. Absent: chest pain, palpitations , syncope, dyspnea on exertion, orthopnea Rhythm: Present: regular rhythm Vascular: Present: pedal edema. Absent: pallor of an extermity, unilateral swelling - Respiratory Respiratory: Absent: cough, dyspnea, hemoptysis, dyspnea on exertion, wheezing, pain on inspiration, chest congestion - Gastrointestinal Gastrointestinal: Present: constipation. Absent: abdominal pain, hematochezia, melena, nausea, vomiting - Genitourinary Genitourinary: Absent: flank pain, hematuria Menstruation: post hysterectomy - Musculoskeletal Musculoskeletal: Present: limited range of motion (left leg), muscle weakness. Absent: back pain, deformity - Integumentary/Breasts Integumentary: Absent: erythema, rash - Neurological Neurological: Present: weakness. Absent: confusion, dizziness, focal weakness - Psychiatric Psychiatric: Absent: anxiety, behavioral changes, depression - Endocrine Endocrine: Absent: cold intolerance, heat intolerance, palpitations - Hematologic/Lymphatic Hematologic/Lymphatic: Present: easy bruising (Lovenox) - Allergic/Immunologic Allergic/Immunologic: Absent: seasonal rhinorrhea Medications Home Medications Medication Instructions Recorded Confirmed Type C,E,Zinc,Copper 11/Xvgqu4k/Lut 1 each PO DAILY 06/18/18 06/18/18 History [Ocuvite Adult 50 Plus Softgel] Calcium Carb/D3/Magnesium/Zinc 1 each PO DAILY 06/18/18 06/18/18 History [Mahesh Mag Zinc-D3 Tablet] Docusate Sodium [Colace] 1 cap PO PRN PRN 06/18/18 06/18/18 History Ergocalciferol (Vitamin D2) 1 tab PO DAILY 06/18/18 06/18/18 History [Vitamin D2] Iron Polysaccharide Complex 1 cap PO BID 06/18/18 06/18/18 History [Niferex] Levothyroxine Sodium 100 mcg PO DAILY 06/18/18 06/18/18 History Metoprolol Succinate (XL) [Toprol 25 mg PO DAILY 06/18/18 06/18/18 History Xl] Omeprazole Magnesium [Prilosec Otc] 20 mg PO DAILY 06/18/18 06/18/18 History Ropinirole [Requip] 3 mg PO TID 06/18/18 06/18/18 History Torsemide [Demadex] 1 tab PO DAILY 06/18/18 06/18/18 History Tramadol HCl [Ultram] 25 mg PO BID 06/18/18 06/18/18 History Vit C/Vit E/Lutein/Min/Burlington-3 1 cap PO DAILY 06/18/18 06/18/18 History [Ocuvite Softgel] Vitamin B Complex [Super B-50 1 each PO DAILY 06/18/18 06/18/18 History Complex] Allergies Allergy/AdvReac Type Severity Reaction Status Date / Time No Known Allergies Allergy Verified 06/17/18 18:53 Exam Vital Signs: Temperature 97.9 F 06/19/18 07:00 Pulse Rate 84 06/19/18 07:00 Respiratory Rate 12 06/19/18 07:00 Blood Pressure 162/57 H 06/19/18 07:00 Pulse Oximetry 96 06/19/18 08:45 Height/Weight/BMI: Height 5 ft 2 in Weight 220 lb 3.869 oz Body Mass Index 40.2 Comments: Patient is seen while sitting in her wheelchair in her room with PT present, preparing to start therapy. - Constitutional Present: no acute distress, well nourished, well developed, morbidly obese, cooperative - Routine HEENT Exam Head: Present: normocephalic, atraumatic Eye: Present: PERRL. Absent: conjunctival icterus ENT: Present: mucous membranes moist, oropharynx clear - Routine Neck Exam Present: supple, full ROM, trachea midline - Routine Chest/Breast/Axilla Exam Chest wall: Absent: pacemaker - Routine Respiratory Exam Present: decreased breath sounds, crackles (bibasilar). Absent: respiratory distress Comments: Breathing easily on 1L NC. No cough or respiratory distress. No conversational dyspnea. - Routine Cardiovascular Exam Present: RRR, S1, S2, murmur - Routine Abdominal Exam Present: soft, normoactive bowel sounds, non tender Comments: Obese - Routine Exam Comments: Kelley catheter present and actively draining urine. - Routine Extremities Exam Present: edema (1+ bilateral lower extremities), pulses intact, normal capillary refill Comments: Tenderness to left hip with palpation and movement. - Routine Back/Spine/Pelvis Exam Back/Spine: Present: full ROM. Absent: vertebral tenderness - Routine Skin Exam Present: dry, warm Comments: Afebrile. - Routine Neurological Exam Present: alert, oriented X3, moving all extremities, hearing grossly intact, normal speech - Routine Psychiatric Exam Present: normal affect, cooperative Results - Labs CBC & Chem 7: 06/19/18 04:17 06/19/18 04:17 Assessment and Plan Assessment and Plan: Assessment S/P left hip ORIF - 06/17/18, Dr. Locke Left 3 part intertrochanteric hip fracture secondary to mechanical fall Post-op respiratory failure with hypoxia Generalized weakness and debility with gait instability secondary to recent surgery Acute blood loss anemia, asymptomatic Questionable left radial head fracture CKD stage III Restless leg syndrome Hypertension Osteoarthritis Chronic anemia Hypothyroidism GERD Chronic lower extremity edema Chronic anemia Morbid obesity, BMI >40 Plan S/P left hip ORIF - 06/17/18, Dr. Locke. * Agree with admission to IRU for continued therapy for strengthening and improvement in functional abilities. * Lovenox x 30 days following surgery. Monitor closely for signs of bleeding. * Kelley catheter remains in place. Will encourage bladder retraining and removal within next day or so. Post-op respiratory failure with hypoxia * Continue oxygen supplementation as indicated to maintain SAO2 >90%. Weaning as able. Patient does not use oxygen at home. * Encourage incentive spirometry for pulmonary toileting. Questionable left radial head fracture * Monitor closely for pain - may consider repeating x-ray if pain persists or worsens. Generalized weakness and debility with gait instability secondary to recent surgery. * Pain medications and treatment plans per Dr. Galdamez Acute blood loss anemia, asymptomatic. * Hgb 11.3 on admission prior to surgery -->8.8 today. Asymptomatic. Monitor closely. No signs of acute bleeding. * History of chronic anemia. Continue home iron and B12 supplementation. * Will monitor labs periodically throughout admission given current anemia and history of recent hypokalemia on admission and CKD. Hypertension. * Continue home metoprolol 25mg daily. IV hydralazine utilized during acute stay given NPO status. Monitor blood pressure closely. Restless leg syndrome. * Continue home requip 3mg TID. Hypothyroidism. * Continue home Synthroid 100mcg daily. TSH 2.26 on admission 06/17/18. GERD. * Continue home Prilosec. Chronic lower extremity edema. * Continue home torsemide 20mg daily. Reported home dry weight 220 lbs. Monitor daily weight and urinary output closely. CKD stage III. * Monitor renal function closely given anemia and continuation of home torsemide. * S/P remote nephrostomy - follows with Dr. Klein. Morbid obesity, BMI >40. Osteoarthritis. Upon discharge, patient's care will be returned to her PCP, Dr. Vazquez. Patient request to be a FULL CODE. Home Medications C,E,Zinc,Copper 11/[id number]/Lut [Ocuvite Adult 50 Plus Softgel] 1 each PO DAILY Calcium Carb/D3/Magnesium/Zinc [Mahesh Mag Zinc-D3 Tablet] 1 each PO DAILY Docusate Sodium [Colace] 1 cap PO PRN PRN Ergocalciferol (Vitamin D2) [Vitamin D2] 1 tab PO DAILY Iron Polysaccharide Complex [Niferex] 1 cap PO BID Levothyroxine Sodium 100 mcg PO DAILY Metoprolol Succinate (XL) [Toprol Xl] 25 mg PO DAILY Omeprazole Magnesium [Prilosec Otc] 20 mg PO DAILY Ropinirole [Requip] 3 mg PO TID Torsemide [Demadex] 1 tab PO DAILY Tramadol HCl [Ultram] 25 mg PO BID Vit C/Vit E/Lutein/Min/[place]-3 [Ocuvite Softgel] 1 cap PO DAILY Vitamin B Complex [Super B-50 Complex] 1 each PO DAILY DVT Prophylaxis: SCD's, Lovenox GI Prophylaxis: Omeprazole Resuscitation Status: Full Code - Time spent with patient Time with patient PN: 70 minutes - Physician Narrative Physician: Richard Veronica MD Narrative: Date: 06/19/18 Time: 1924 Have independently interviewed and examined pt. Chart reviewed. Case discussed with my PA. Above care plan developed with my supervision; agree with above. Admitted to IRU for restorative therapy following fall with subsequent hip fracture and definitive surgical repair. Note pain has been bothersome-hurts with movements. Therapy difficult. Bowels slow. Decreased appetite this evening. Breathing okay-not having cough or congestion. No pain with breathing. Lungs: decreased, no distress CV: regular AB: soft nt BS decreased MSE: awake alert Plan: Agree with admission of patient to IRU to maximize functional status. Encourage participation with therapy. Continue with pain control. Encourage IS and pulmonary toilet-wean O2 as able. Continue with bowel motivation. Will need to monitor blood counts secondary to post op anemia. Medically stable for IRU floor activities. Will follow along during patient's rehabilitation stay. Hospital Course Summary Disclaimer: The visit summary below is not to be considered part of the above Progress Note. Hospital Course: 06/19/18 S/P left hip ORIF - 06/17/18, Dr. Locke. * Agree with admission to IRU for continued therapy for strengthening and improvement in functional abilities. * Lovenox x 30 days following surgery. Monitor closely for signs of bleeding. * Kelley catheter remains in place. Will encourage bladder retraining and removal within next day or so. Post-op respiratory failure with hypoxia * Continue oxygen supplementation as indicated to maintain SAO2 >90%. Weaning as able. Patient does not use oxygen at home. * Encourage incentive spirometry for pulmonary toileting. Questionable left radial head fracture * Monitor closely for pain - may consider repeating x-ray if pain persists or worsens. Generalized weakness and debility with gait instability secondary to recent surgery. * Pain medications and treatment plans per Dr. Galdamez Acute blood loss anemia, asymptomatic. * Hgb 11.3 on admission prior to surgery -->8.8 today. Asymptomatic. Monitor closely. No signs of acute bleeding. * History of chronic anemia. Continue home iron and B12 supplementation. * Will monitor labs periodically throughout admission given current anemia and history of recent hypokalemia on admission and CKD. Hypertension. * Continue home metoprolol 25mg daily. IV hydralazine utilized during acute stay given NPO status. Monitor blood pressure closely. Restless leg syndrome. * Continue home requip 3mg TID. Hypothyroidism. * Continue home Synthroid 100mcg daily. TSH 2.26 on admission 06/17/18. GERD. * Continue home Prilosec. Chronic lower extremity edema. * Continue home torsemide 20mg daily. Reported home dry weight 220 lbs. Monitor daily weight and urinary output closely. CKD stage III. * Monitor renal function closely given anemia and continuation of home torsemide. * S/P remote nephrostomy - follows with Dr. Klein. Morbid obesity, BMI >40. Osteoarthritis. Upon discharge, patient's care will be returned to her PCP, Dr. Vazquez. Patient request to be a FULL CODE.
--- NOTE | 2018-06-19 14:53 | IRU History & Physical Report ---
[facility] Date: Date: 06/19/18 Time: 1450 Chief complaint: I fell HPI: Ms. Ignacio is a pleasant 87-year-old woman from [place], [place]. Referring physician is Rashaun Jeff MD and her primary care physician is Shara Vazquez MD. the patient states that she was outdoors getting some items out of her car. She tripped over the pavement she states, falling on her left side. She denies any head trauma. She was taken to [facility] in [place], [place] emergency department where an x-ray demonstrated a left sided intertrochanteric femoral neck fracture and possible nondisplaced fracture of head of the radius on the left elbow. Subsequently the left elbow was evaluated by Dr. Locke and felt not to be fractured. She denied any loss of consciousness, dizziness, blurred vision, syncope or near syncope or head trauma. She was transferred to [facility] where she was admitted on 06/17/2018. She was seen in consultation by Dr. Ryan Locke and taken to surgery on the same date (06/17/2018). Pre-and postoperative diagnoses were "left 3 part intertrochanteric hip fracture." The patient underwent open reduction internal fixation with intramedullary fixation of left intertrochanteric hip fracture. She tolerated surgery well. The patient has history of chronic anemia. Her initial hemoglobin was 11.3 dropping to 10.6. Today it is 8.8. She has evidence of acute blood loss anemia likely related to the fracture. In addition she does not normally use oxygen at home but has required supplemental oxygen by nasal cannula since the procedure. She does have history of chronic benign essential hypertension as well as chronic kidney disease stage III and chronic lower extremity edema. Patient lives in independent living in [place], [place]. Her prior level of functioning indicates that she was modified independent for eating, grooming and bathing as well as transfers. She was independent for upper and lower body dressing and toileting. She was modified independent for walking with a rolling walker indefinitely. She was modified independent for stair climbing. While on acute care the patient declined attempts at ADLs. However she did agree to participate when she came to inpatient rehabilitation. At the present time she is total assist for transfers and unable to walk even with a rolling walker. She requires supervision for eating. The following medical conditions are noted and require active monitoring and/or management: 1. Status post open reduction internal fixation of left hip fracture 2. Acute blood loss anemia superimposed upon chronic anemia 3. Acute respiratory failure with hypoxemia 4. Benign essential hypertension The following therapies will be needed: 1. Physical therapy: for transfers and ambulation and stairs. 2. Occupational therapy: for ADL's and transfers. 3. Medical management: for the above conditions. 4. 24 hour Rehabilitation Nursing to monitor and address the following: Monitor blood pressure in view of the acute blood loss anemia, monitor wound status, monitor any evidence of further bleeding as well as monitoring oxygen levels and supplying supplemental oxygen. [facility] Patient Stated Medical History Hypertension Yes Gastroesophageal Reflux Yes: well controlled with meds Disease Other Musculoskeletal Yes: Restless leg syndrome Anesthesia Reactions No Clinic Medical History (Last Updated 06/19/18 @ 11:22 by JAYNA Gaitan) Chronic anemia (Acute Medical) Chronic kidney disease (CKD), stage III (moderate) (Acute Medical) s/p remote nephrectomy Edema extremities (Acute Medical) chronic, lower extremities GERD (gastroesophageal reflux disease) (Acute Medical) Hypertension (Acute Medical) Hypothyroid (Acute Medical) Osteoarthritis (Acute Medical) Restless leg syndrome (Acute Medical) S/P ORIF (open reduction internal fixation) fracture (Acute Medical) left - 06/17/18, Dr. Locke. Medical History Updates: History of CKD stage III. Restless leg syndrome. Hypertension. Osteoarthritis. Chronic anemia. Hypothyroidism. GERD. Chronic lower extremity edema Surgical History: Hysterectomy with appendectomy. 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 Cholecystectomy. Tonsillectomy. Right-sided total hip replacement surgery 2 years ago Family History: Family History (Last Updated 06/19/18 @ 11:22 by JAYNA Gaitan) Maternal Aunt Diabetes Family History Updates: The patient states that both parents of " congestive heart failure." - Social History Smoking status: Never smoker second hand exposure: No Substance use type: does not use Alcohol intake: never Alcohol intake frequency: does not drink Housing: house Household members: none service: No Current occupational status: retired Current occupational exposures/hazards: No Does patient use chewing tobacco?: No Current residence: Independent Living Social history: The patient has not been . She has worked as a [place] her entire life she states. Review of Systems - Constitutional Constitutional: Present: fatigue, weakness. Absent: anorexia, chills, fever(s) , headache(s), lethargy, malaise, night sweats, weight gain, weight loss - [facility] Eyes: Absent: blurry vision, change in vision, diplopia Ears: Absent: ear pain Balance: Absent: falling to one side Nose: Absent: nosebleeds, allergies Mouth/Throat: Absent: sore throat, changes in swallowing, dry mouth - Cardiovascular Cardiovascular: Absent: chest pain, palpitations, syncope, dyspnea on exertion, orthopnea, edema, cyanosis, heart murmur Rhythm: Present: regular rhythm Vascular: Present: pedal edema. Absent: pallor of an extermity, unilateral swelling - Respiratory Respiratory: Absent: cough, dyspnea, hemoptysis, dyspnea on exertion, wheezing, pain on inspiration, chest congestion, excessive phlegm production - Gastrointestinal Gastrointestinal: Absent: abdominal pain, change in bowel habits, constipation, diarrhea, dyspepsia, dysphagia, early satiety, hematochezia, melena, nausea, vomiting - Genitourinary Menstruation: post hysterectomy - Musculoskeletal Musculoskeletal: Absent: abnormal gait, arthralgias, back pain, joint swelling, limited range of motion, muscle weakness Musculoskeletal Comments: Patient complains of pain in the hip which was operated upon. Also complains of hip and the left - Integumentary/Breasts Integumentary: Absent: alopecia, erythema, lesions, pruritus, rash, jaundice - Neurological Neurological: Absent: abnormal gait, abnormal movements, abnormal speech, confusion, convulsions, dizziness, focal weakness, frequent falls, headache(s), loss of vision, memory loss, numbness, paresthesias, tremor(s) - Psychiatric Psychiatric: Absent: abnormal sleep pattern, anxiety, depression - Hematologic/Lymphatic Hematologic/Lymphatic: Absent: easy bleeding, easy bruising, lymphadenopathy - Allergic/Immunologic Allergic/Immunologic: Absent: urticaria Medications Home Medications Medication Instructions Recorded Confirmed Type C,E,Zinc,Copper 11/Beozo7u/Lut 1 each PO DAILY 06/18/18 06/18/18 History [Ocuvite Adult 50 Plus Softgel] Calcium Carb/D3/Magnesium/Zinc 1 each PO DAILY 06/18/18 06/18/18 History [Mahesh Mag Zinc-D3 Tablet] Docusate Sodium [Colace] 1 cap PO PRN PRN 06/18/18 06/18/18 History Ergocalciferol (Vitamin D2) 1 tab PO DAILY 06/18/18 06/18/18 History [Vitamin D2] Iron Polysaccharide Complex 1 cap PO BID 06/18/18 06/18/18 History [Niferex] Levothyroxine Sodium 100 mcg PO DAILY 06/18/18 06/18/18 History Metoprolol Succinate (XL) [Toprol 25 mg PO DAILY 06/18/18 06/18/18 History Xl] Omeprazole Magnesium [Prilosec Otc] 20 mg PO DAILY 06/18/18 06/18/18 History Ropinirole [Requip] 3 mg PO TID 06/18/18 06/18/18 History Torsemide [Demadex] 1 tab PO DAILY 06/18/18 06/18/18 History Tramadol HCl [Ultram] 25 mg PO BID 06/18/18 06/18/18 History Vit C/Vit E/Lutein/Min/[place]-3 1 cap PO DAILY 06/18/18 06/18/18 History [Ocuvite Softgel] Vitamin B Complex [Super B-50 1 each PO DAILY 06/18/18 06/18/18 History Complex] Allergies Allergy/AdvReac Type Severity Reaction Status Date / Time No Known Allergies Allergy Verified 06/17/18 18:53 Results IRU - Labs Labs: I have reviewed acute inpatient records. Exam Vital Signs: Temperature 97.9 F 06/19/18 07:00 Pulse Rate 84 06/19/18 07:00 Respiratory Rate 12 06/19/18 07:00 Blood Pressure 162/57 H 06/19/18 07:00 Pulse Oximetry 96 06/19/18 08:45 Height/Weight/BMI: Height 1.57 m Weight 99.9 kg Body Mass Index 40.2 - Constitutional Present: moderate distress (Left hip), well nourished, well developed, morbidly obese. Absent: cooperative - Routine HEENT Exam Head: Present: normocephalic, atraumatic. Absent: cushingoid faces, abrasion, laceration, hematoma Eye: Present: EOMI, PERRL. Absent: conjunctival icterus, scleral injection, periorbital swelling, nystagmus ENT: Present: mucous membranes moist, mucous membranes dry - Routine Neck Exam Present: supple, full ROM, trachea midline. Absent: lymphadenopathy, thyromegaly, tenderness, swelling - Routine Chest/Breast/Axilla Exam Chest wall: Absent: tenderness, mass Axillae: Absent: lymphadenopathy, mass - Routine Respiratory Exam Present: decreased breath sounds, CTA bilaterally. Absent: accessory muscle use , prolonged expiratory phase, rales, respiratory distress, rhonchi, stridor, wheezes, crackles, distant breath sounds - Routine Cardiovascular Exam Present: RRR, S1, S2, murmur (prominent systolic murmur noted. Unable to localize at present but sounds loudest along left sternal border. No gallop.). Absent: gallop, S3, S4, click, irregular rhythm - Routine Abdominal Exam Present: soft, normoactive bowel sounds, non distended, non tender. Absent: rebound, guarding, firm, rigid, organomegaly, mass, hernia, wound - Routine Extremities Exam Present: no edema, non tender, pulses intact, normal capillary refill. Absent: cyanosis, clubbing - Routine Back/Spine/Pelvis Exam Back/Spine: Present: full ROM. Absent: scoliosis, kyphosis - Routine Skin Exam Present: intact, dry, warm, wounds (left hip), ecchymosis (about the left olecranon process). Absent: cyanosis, erythema, pallor, mottling, petechiae, urticaria, lesions, jaundice - Routine Neurological Exam Present: alert, oriented X3, CN II-XII intact, moving all extremities, normal speech - Routine Psychiatric Exam Present: normal affect, normal thought process. Absent: depressed, anxious Sepsis Assessment - Evaluation Severe Sepsis: none seen IRU A/P (1) S/P ORIF (open reduction internal fixation) fracture Problem details: 06/17/18 - Dr. Locke, left. Current visit: Yes Status: Acute Patient complains of some discomfort in the left hip despite use of pain medications. No evidence of infection at present. Continue to work with patient. Patient requires encouragement. (2) Hypertension Qualifiers: Hypertension type: essential hypertension Qualified Code(s): I10 - Essential (primary) hypertension Current visit: Yes Status: Chronic Blood pressures have been running a bit high at about 160. Management per hospitalist service. (3) Acute respiratory failure with hypoxemia Current visit: Yes Status: Acute She continues to require supplemental oxygen per nasal cannula to maintain saturations 90% or greater. Her lungs sound clear with diminished breath sounds. (4) Acute blood loss anemia Current visit: Yes Status: Acute Patient has dropped some 3 g of hemoglobin. Continue to monitor. (5) CKD (chronic kidney disease) stage 3, GFR 30-59 ml/min Current visit: Yes Status: Chronic DVT Prophylaxis: SCD's, Lovenox Resuscitation Status: Full Code - Course Hospital Course: Orlin Galdamez MD: - Interventions to Obtain Goals PT Treatment Plan: Balance/Proprioception, Functional Activities, Gait Training , Patient/Family Education, Therapeutic Exercise OT Treatment Plan: ADL (Basic Care), Balance Training, IADL, Pt./Family Education, Ther. Exercise for ADL Goals Progress/Modifications: Gudelia is experiencing quite a bit of discomfort in the operated hip. She has history of acute on chronic anemia as well as acute respiratory failure with hypoxemia. She requires a multidisciplinary approach with physical therapy, occupational therapy as well as 24 hour rehabilitation nursing in order to allow her to get back to her independent living status. She requires medical supervision with regard to the acute blood loss anemia and acute respiratory failure as well as pain management.
[2018-06-19] MEDS ORDERED: BISACODYL 10 MG SUPPOSITORY RECTALLY SCH (20:00)
[2018-06-19] MEDS: IRON POLYSACCHARIDE COMPLEX 150 MG CAPSULE PO SCH (20:53)
[2018-06-19] MEDS: ENOXAPARIN 40 MG/0.4 ML INJECTION SQ SCH ×2 (22:04→23:35)
[2018-06-20] MEDS: ACETAMINOPHEN 325 MG TABLET PO PRN ×2 (01:20→08:28)
[2018-06-20] MEDS: TRAMADOL 50 MG TABLET PO PRN ×3 (05:36→20:47)
[2018-06-20] MEDS: LEVOTHYROXINE 100 MCG TABLET PO SCH (05:36)
[2018-06-20] MEDS: OMEPRAZOLE 20 MG CAPSULE PO SCH (05:39)
[2018-06-20] MEDS: POLYETHYL GLYCOL 3350 17gm PACKET PO SCH (08:29)
[2018-06-20] MEDS: ROPINIROLE 3 MG TABLET PO SCH ×3 (08:29→20:46)
[2018-06-20] MEDS: CYANOCOBALAMIN (B-12) 500mcg TABLET PO SCH (08:30)
[2018-06-20] MEDS: VITAMIN B COMPLEX + C TABLET PO SCH (08:30)
[2018-06-20] MEDS: TORSEMIDE 20 MG TABLET PO SCH (08:30)
[2018-06-20] MEDS: IRON POLYSACCHARIDE COMPLEX 150 MG CAPSULE PO SCH ×2 (08:30→20:46)
[2018-06-20] MEDS: DOCUSATE SODIUM 100 MG CAPSULE PO SCH ×2 (08:31→20:46)
--- NOTE | 2018-06-20 10:01 | Orthopedic Progress Note ---
Date: Date: 06/20/18 Time: 956 Subjective/Severity of Illness: Gudelia is eating breakfast in the cafeteria this morning during rounds. She continues to be sore in left hip, but states pain control has improved since taking Tramadol 100mg. Left forearm pain continues to improve as well. Denies any other concerns. Orthopedic Exam Vital signs: Temperature 97.9 F 06/19/18 07:00 Pulse Rate 84 06/19/18 07:00 Respiratory Rate 12 06/19/18 07:00 Blood Pressure 162/57 H 06/19/18 07:00 Pulse Oximetry 96 06/19/18 08:45 - Constitutional General Appearance: Present: alert, orientated x3, cooperative - Respiratory Exam Present: non-labored - Cardiovascular Exam Present: pedal pulses intact - Extremities Exam Present: pulses intact, normal capillary refill - Dressing Dressing: dry, intact, no drainage - Neurological Exam Present: intact to light touch, no deficits - Psychiatric Exam Present: alert, oriented - Labs Result Diagrams: 06/19/18 04:17 06/19/18 04:17 H & H 06/19/18 Range/Units 04:17 Hgb 8.8 L D (12-16) GM/DL Hct 28.7 L D (36-46) % Orthopedic Assessment and Plan (1) S/P ORIF (open reduction internal fixation) fracture Status: Acute Problem Details: 06/17/18 - Dr. Locke, left. Assessment and Plan: Post-op day 3. Pain control improved with Tramadol 100mg q6hr prn. Current anti-coagulation protocol with Lovenox for VTE prophylaxis. SCD's for added protection PT/OT services to improve independent function. Hospital Course Summary Disclaimer: The visit summary below is not to be considered part of the above Progress Note. Hospital Course: 06/19/18 S/P left hip ORIF - 06/17/18, Dr. Locke. * Agree with admission to IRU for continued therapy for strengthening and improvement in functional abilities. * Lovenox x 30 days following surgery. Monitor closely for signs of bleeding. * Kelley catheter remains in place. Will encourage bladder retraining and removal within next day or so. Post-op respiratory failure with hypoxia * Continue oxygen supplementation as indicated to maintain SAO2 >90%. Weaning as able. Patient does not use oxygen at home. * Encourage incentive spirometry for pulmonary toileting. Questionable left radial head fracture * Monitor closely for pain - may consider repeating x-ray if pain persists or worsens. Generalized weakness and debility with gait instability secondary to recent surgery. * Pain medications and treatment plans per Dr. Galdamez Acute blood loss anemia, asymptomatic. * Hgb 11.3 on admission prior to surgery -->8.8 today. Asymptomatic. Monitor closely. No signs of acute bleeding. * History of chronic anemia. Continue home iron and B12 supplementation. * Will monitor labs periodically throughout admission given current anemia and history of recent hypokalemia on admission and CKD. Hypertension. * Continue home metoprolol 25mg daily. IV hydralazine utilized during acute stay given NPO status. Monitor blood pressure closely. Restless leg syndrome. * Continue home requip 3mg TID. Hypothyroidism. * Continue home Synthroid 100mcg daily. TSH 2.26 on admission 06/17/18. GERD. * Continue home Prilosec. Chronic lower extremity edema. * Continue home torsemide 20mg daily. Reported home dry weight 220 lbs. Monitor daily weight and urinary output closely. CKD stage III. * Monitor renal function closely given anemia and continuation of home torsemide. * S/P remote nephrostomy - follows with Dr. Klein. Morbid obesity, BMI >40. Osteoarthritis. Upon discharge, patient's care will be returned to her PCP, Dr. Vazquez. Patient request to be a FULL CODE.
--- NOTE | 2018-06-20 11:22 | IRU Progress Note ---
- Subjective/Serverity of Illness Date: 06/20/18 Gudelia was reassessed in her room on inpatient rehabilitation. She does complain of a degree of nausea this morning after eating eggs. She states this is not unusual after eating scrambled eggs. She has not vomited. She reports the pain is there in the hip and bothersome to her. Tramadol was increased to 100 mg and that seems to be better for her. She has been started on Lovenox. I discussed with Kim with orthopedics the issue of Lovenox versus Xarelto. For the time being we will continue Lovenox. She continues on oxygen supplementation. Hemoglobin has dropped to 8.8 from a high of around 11. We'll continue to monitor. She is just getting started with therapy. Pain was a significant barrier or limitation yesterday but she is cooperative today. However she states she " wants to be left alone." I reminded her that she needs to participate with therapy in order to stay here and get stronger to go home. Exam Vital Signs: Temperature 97.8 F 06/20/18 07:55 Pulse Rate 73 06/20/18 07:55 Respiratory Rate 18 06/20/18 07:55 Blood Pressure 126/46 06/20/18 07:55 Pulse Oximetry 97 06/20/18 09:10 Height/Weight/BMI: Height 1.57 m Weight 99.9 kg Body Mass Index 40.2 - Constitutional Present: moderate distress (pain in hip), well nourished, well developed, morbidly obese - Routine HEENT Exam Eye: Present: EOMI ENT: Present: mucous membranes moist - Routine Respiratory Exam Present: CTA bilaterally. Absent: wheezes - Routine Cardiovascular Exam Present: RRR, S1, S2, murmur (murmur prominent as before) - Routine Abdominal Exam Present: soft, normoactive bowel sounds, non distended. Absent: tenderness - Routine Extremities Exam Present: edema, normal capillary refill - Routine Skin Exam Present: dry, warm - Routine Neurological Exam Present: alert, oriented X3, CN II-XII intact - Routine Psychiatric Exam Present: normal affect, anxious Results IRU - Labs Labs: I reviewed laboratory findings and chart data. Have discussed with orthopedics. IRU A/P (1) S/P ORIF (open reduction internal fixation) fracture Problem details: 06/17/18 - Dr. Locke, left. Current visit: Yes Status: Acute Pain management difficult with regard to the hip. The patient is on tramadol 100 mg now and doing better in this regard. Seems to be more cooperative with therapy today. (2) Hypertension Qualifiers: Hypertension type: essential hypertension Qualified Code(s): I10 - Essential (primary) hypertension Current visit: Yes Status: Chronic Blood pressures are reviewed and are well controlled. (3) Acute respiratory failure with hypoxemia Current visit: Yes Status: Acute She continues to require supplemental oxygen. (4) Acute blood loss anemia Current visit: Yes Status: Acute Hemoglobin reviewed at 8.8. Initially was over 11. Continue to monitor. (5) CKD (chronic kidney disease) stage 3, GFR 30-59 ml/min Current visit: Yes Status: Chronic DVT Prophylaxis: SCD's, Lovenox Resuscitation Status: Full Code - Course Hospital Course: Orlin Galdamez MD: 06/20/18 11:22 Pain management difficult. Nauseated today. Continues to require supplemental oxygen. Hemoglobin down to 8.8. - Interventions to Obtain Goals PT Treatment Plan: Balance/Proprioception, Functional Activities, Gait Training , Patient/Family Education, Therapeutic Exercise OT Treatment Plan: ADL (Basic Care), Balance Training, IADL, Pt./Family Education, Ther. Exercise for ADL Goals Progress/Modifications: Patient requires encouragement to participate with therapy both PT and OT. We discussed this at length today with the patient. She does have nausea today. She attributes this to the scrambled eggs however. Medically she seems stable. Hemoglobin down to 8.8 and will be monitored. Continues to require supplemental oxygen. Patient was encouraged by me to continue working with therapy diligently.
--- NOTE | 2018-06-20 13:32 | IRU Plan of Care ---
[facility] Overall Plan of Care - Date Date: 06/20/18 - Patient Impairments (1) S/P ORIF (open reduction internal fixation) fracture Code(s): Z96.7 - Presence of other bone and tendon implants; Z87.81 - Personal history of (healed) traumatic fracture Status: Acute Classification: Present on IRF Admission, IRF Tx That Should Address Diagnosis, Diagnosis Requiring Medical Follow Up (2) Hypertension Qualifiers: Hypertension type: essential hypertension Qualified Code(s): I10 - Essential (primary) hypertension Code(s): I10 - Essential (primary) hypertension Status: Chronic Classification: Present on IRF Admission, IRF Tx That Should Address Diagnosis, Diagnosis Requiring Medical Follow Up (3) Acute respiratory failure with hypoxemia Code(s): J96.01 - Acute respiratory failure with hypoxia Status: Acute Classification: Present on IRF Admission, IRF Tx That Should Address Diagnosis, Diagnosis Requiring Medical Follow Up (4) Acute blood loss anemia Code(s): D62 - Acute posthemorrhagic anemia Status: Acute Classification: Present on IRF Admission, IRF Tx That Should Address Diagnosis, Diagnosis Requiring Medical Follow Up (5) CKD (chronic kidney disease) stage 3, GFR 30-59 ml/min Code(s): N18.3 - Chronic kidney disease, stage 3 (moderate) Status: Chronic Classification: Present on IRF Admission, Diagnosis Requiring Medical Follow Up - Relevant Changes Relevant Changes: No Reviewed: I have reviewed the patient's information and concur with the finding and results of the pre-admission screen. Certification: I certify the patient for rehabilitation. - Medical Prognosis Medical Prognosis: Good Vital Signs: Last Vital Signs Temp 97.8 F 06/20/18 07:55 Pulse 73 06/20/18 07:55 Resp 18 06/20/18 07:55 BP 126/46 06/20/18 07:55 Pulse Ox 97 06/20/18 09:10 - Anticipated Interventions Anticipated Interventions: The patient requires inpatient IRF care for PT, OT, and/or ST for residuals remaining from left hip fracture and ORIF resulting in muscular weakness and strength deficits. An individualized overall plan of care has been developed after careful review of the patient's preadmission screening, post admission physician evaluation and assessments of all therapy disciplines and/or other pertinent clinicians involved in treating the patient. This indicates medical necessity and rehabilitation necessity have been established through a thorough review of all available medical information. ROM Deficit: Left Lower Extremity - Current Functional Status Failed Alternative Therapy: Arrived from Acute Care Patient Requires: The patient requires oversight by rehabilitation physician to manage their rehabilitation treatment plan and multidisciplinary approach to care that can only be provided in an IRF and requires a multidisciplinary approach to care, provided by professional PTs, OTs, STs, rehabilitation nurses, and may require STs, dieticians, and RTS. This is not available in lesser levels of care. Physical Therapy Minutes: 90 Occupational Therapy Minutes: 90 Therapy: The patient is to receive therapy at least 5 days a week. - Anticipated LOS/Outcomes Anticipated Functional Outcome: It is anticipated the patient will be able to return to her independent living apartment at modified independent level of functioning with use of assistive devices. It is anticipated that her acute blood loss anemia will be adequately controlled and she will be off supplemental oxygen. Anticipated Length of Stay (days): 14 Anticipated DC Destination: Home, Self Care, Home Health Service Home Safety Plan: The patient will be provided with the development of a Home Safety Plan for return to a home or home-like environment and and to ensure safety post discharge. - Plan to Avoid Complications Barriers to Attaining Goals: Weakness, Pain Control, Medical Limitation ( hypoxemia) Plan to Avoid Complications: The patient cannot receive this care in a lesser intensive setting such as Senior Care or Outpatient Therapy due to the patient requiring the following : After her fracture this patient suffered acute blood loss anemia and requires close monitoring of her blood pressure and pulse. She requires wound monitoring as well as provision of supplemental oxygen in view of her acute hypoxemic respiratory failure. She requires a multidisciplinary approach with PT and OT and medical supervision in view of these medical issues.
[2018-06-20] MEDS: ENOXAPARIN 40 MG/0.4 ML INJECTION SQ SCH (22:47)
[2018-06-21] MEDS: TRAMADOL 50 MG TABLET PO PRN ×2 (06:02→20:44)
[2018-06-21] MEDS: OMEPRAZOLE 20 MG CAPSULE PO SCH (06:02)
[2018-06-21] MEDS: LEVOTHYROXINE 100 MCG TABLET PO SCH (06:02)
[2018-06-21] MEDS: HYDROCODONE/APAP 7.5 MG/325 MG TABLET PO PRN ×3 (08:16→22:25)
[2018-06-21] MEDS: DOCUSATE SODIUM 100 MG CAPSULE PO SCH ×2 (09:01→20:44)
[2018-06-21] MEDS: VITAMIN B COMPLEX + C TABLET PO SCH (09:01)
[2018-06-21] MEDS: TORSEMIDE 20 MG TABLET PO SCH (09:01)
[2018-06-21] MEDS: ROPINIROLE 3 MG TABLET PO SCH ×3 (09:01→20:44)
[2018-06-21] MEDS: IRON POLYSACCHARIDE COMPLEX 150 MG CAPSULE PO SCH ×2 (09:02→20:44)
[2018-06-21] MEDS: CYANOCOBALAMIN (B-12) 500mcg TABLET PO SCH (09:02)
[2018-06-21] MEDS: POLYETHYL GLYCOL 3350 17gm PACKET PO SCH (09:02)
[2018-06-21] MEDS ORDERED: NS FLUSH BAG 500ml IV PRN (11:47)
[2018-06-21] MEDS ORDERED: FUROSEMIDE 20 MG/2 ML INJECTION IVP ONE (14:00)
--- NOTE | 2018-06-21 14:16 | Progress Note ---
- Date 06/21/18 Subjective: Gudelia is seen today while eating lunch. She reports that she's not doing well, but is unable to specify why. She denies any fevers, chills, chest pain, shortness of breath, abdominal pain, nausea, vomiting or dysuria. She reports her hip pain is well controlled. She continues to require supplemental oxygen and denies use of oxygen at home. She also admits to a cough but is unsure if it is productive. Labs today revealed progressively declining hemoglobin (7.4) . She admits to some dizziness and lightheadedness this morning with standing as well as fatigue. She is also noted to have some hyponatremia (Na 132). Objective Vital signs: Temperature 97.9 F 06/21/18 08:48 Pulse Rate 77 06/21/18 08:48 Respiratory Rate 18 06/21/18 08:48 Blood Pressure 132/54 06/21/18 08:48 Pulse Oximetry 94 06/21/18 08:48 Height/Weight/BMI: Height 5 ft 2 in Weight 221 lb 9.033 oz Body Mass Index 40.2 Comments: Sitting up in wheelchair, eating lunch in her room. - Constitutional Present: no acute distress, well nourished, well developed, morbidly obese, cooperative - Routine HEENT Exam Head: Present: normocephalic, atraumatic Eye: Present: PERRL. Absent: conjunctival icterus ENT: Present: mucous membranes moist, oropharynx clear - Routine Respiratory Exam Present: decreased breath sounds, crackles. Absent: wheezes Comments: No cough or respiratory distress on exam; no conversational dyspnea; diminished air movement with faint bibasilar crackles and occasional course lung sounds. - Routine Cardiovascular Exam Present: RRR, S1, S2, murmur - Routine Abdominal Exam Present: soft, normoactive bowel sounds, non tender - Routine Extremities Exam Present: edema, pulses intact - Routine Back/Spine/Pelvis Exam Back/Spine: Present: full ROM. Absent: vertebral tenderness - Routine Musculoskeletal Exam Musculoskeletal: Present: no clubbing or cyanosis, moving extremities well - Routine Skin Exam Present: dry, warm Comments: Afebrile. - Routine Neurological Exam Present: alert, moving all extremities, hearing grossly intact, normal speech - Routine Lymphatic Exam Lymphatic: Absent: lymphedema - Routine Psychiatric Exam Present: cooperative Results - Labs CBC & Chem 7: 06/21/18 04:03 06/21/18 04:03 Assessment and Plan (1) S/P ORIF (open reduction internal fixation) fracture Problem details: 06/17/18 - Dr. Locke, left. Current visit: Yes Status: Acute (2) Acute blood loss anemia Current visit: Yes Status: Acute Assessment and Plan: Assessment S/P left hip ORIF - 06/17/18, Dr. Locke Left 3 part intertrochanteric hip fracture secondary to mechanical fall Post-op respiratory failure with hypoxia Generalized weakness and debility with gait instability secondary to recent surgery Acute blood loss anemia, asymptomatic Questionable left radial head fracture CKD stage III Restless leg syndrome Hypertension Osteoarthritis Chronic anemia Hypothyroidism GERD Chronic lower extremity edema Chronic anemia Morbid obesity, BMI >40 Plan - 06/21/18 Continue to encourage therapies for strengthening and improvement in functional abilities. Lovenox x 30 days following surgery. Monitor closely for signs of bleeding. Continue oxygen supplementation as indicated to maintain SAO2 >90%. Weaning as able. Patient does not use oxygen at home. Encourage incentive spirometry for pulmonary toileting. Given prolonged need for supplemental oxygen and reported cough, will obtain CXR now - results pending. Suspect fluid overload as weight is up ~3 kgs since admission on 06/18/18. Continue home torsemide 20mg daily. Will give Lasix 20 following blood transfusion. Monitor daily weight closely. Patient reports pain to left arm is controlled. Continue to monitor closely for pain - may consider repeating x-ray if pain persists or worsens. Pain medications and treatment plans per Dr. Galdamez Hgb 11.3 on admission prior to surgery -->7.4 today. Lightheaded with standing. S/P remote nephrostomy - follows with Dr. Klein. Will give 1 unit PRBC now and recheck HH following transfusion. Continue to monitor blood counts closely. Continue home metoprolol 25mg daily. Blood pressure controlled. IV hydralazine utilized during acute stay given NPO status. Monitor blood pressure closely. Recheck labs in AM to monitor blood counts, electrolytes and renal function. DVT Prophylaxis: SCD's, Lovenox GI Prophylaxis: Omeprazole Resuscitation Status: Full Code - Time spent with patient Time with patient PN: 35 minutes - Physician Narrative Physician: Richard Veronica MD Narrative: Date: 06/21/18 Time: 1413 Hospital Course Summary Disclaimer: The visit summary below is not to be considered part of the above Progress Note. Hospital Course: 06/19/18 S/P left hip ORIF - 06/17/18, Dr. Locke. * Agree with admission to IRU for continued therapy for strengthening and improvement in functional abilities. * Lovenox x 30 days following surgery. Monitor closely for signs of bleeding. * Kelley catheter remains in place. Will encourage bladder retraining and removal within next day or so. Post-op respiratory failure with hypoxia * Continue oxygen supplementation as indicated to maintain SAO2 >90%. Weaning as able. Patient does not use oxygen at home. * Encourage incentive spirometry for pulmonary toileting. Questionable left radial head fracture * Monitor closely for pain - may consider repeating x-ray if pain persists or worsens. Generalized weakness and debility with gait instability secondary to recent surgery. * Pain medications and treatment plans per Dr. Galdamez Acute blood loss anemia, asymptomatic. * Hgb 11.3 on admission prior to surgery -->8.8 today. Asymptomatic. Monitor closely. No signs of acute bleeding. * History of chronic anemia. Continue home iron and B12 supplementation. * Will monitor labs periodically throughout admission given current anemia and history of recent hypokalemia on admission and CKD. Hypertension. * Continue home metoprolol 25mg daily. IV hydralazine utilized during acute stay given NPO status. Monitor blood pressure closely. Restless leg syndrome. * Continue home requip 3mg TID. Hypothyroidism. * Continue home Synthroid 100mcg daily. TSH 2.26 on admission 06/17/18. GERD. * Continue home Prilosec. Chronic lower extremity edema. * Continue home torsemide 20mg daily. Reported home dry weight 220 lbs. Monitor daily weight and urinary output closely. CKD stage III. * Monitor renal function closely given anemia and continuation of home torsemide. * S/P remote nephrostomy - follows with Dr. Klein. Morbid obesity, BMI >40. Osteoarthritis. Upon discharge, patient's care will be returned to her PCP, Dr. Vazquez. Patient request to be a FULL CODE. Plan - 06/21/18 Continue to encourage therapies for strengthening and improvement in functional abilities. Lovenox x 30 days following surgery. Monitor closely for signs of bleeding. Continue oxygen supplementation as indicated to maintain SAO2 >90%. Weaning as able. Patient does not use oxygen at home. Encourage incentive spirometry for pulmonary toileting. Given prolonged need for supplemental oxygen and reported cough, will obtain CXR now - results pending. Suspect fluid overload as weight is up ~3 kgs since admission on 06/18/18. Continue home torsemide 20mg daily. Will give Lasix 20 following blood transfusion. Monitor daily weight closely. Patient reports pain to left arm is controlled. Continue to monitor closely for pain - may consider repeating x-ray if pain persists or worsens. Pain medications and treatment plans per Dr. Galdamez Hgb 11.3 on admission prior to surgery -->7.4 today. Lightheaded with standing. S/P remote nephrostomy - follows with Dr. Klein. Will give 1 unit PRBC now and recheck HH following transfusion. Continue to monitor blood counts closely. Continue home metoprolol 25mg daily. Blood pressure controlled. IV hydralazine utilized during acute stay given NPO status. Monitor blood pressure closely. Recheck labs in AM to monitor blood counts, electrolytes and renal function.
--- NOTE | 2018-06-21 16:43 | XRay Report ---
EXAM: XR chest 2V COMPARISON: None available. HISTORY: anemia . FINDINGS: The lungs are clear. There is no pneumothorax or pleural effusion. The cardiac silhouette and pulmonary vasculature are within normal limits. No mediastinal abnormality is present. IMPRESSION: No acute pulmonary process. .
[2018-06-21] MEDS: ENOXAPARIN 40 MG/0.4 ML INJECTION SQ SCH (22:40)
[2018-06-22] MEDS: HYDROCODONE/APAP 7.5 MG/325 MG TABLET PO PRN ×2 (02:43→06:47)
[2018-06-22] MEDS: LEVOTHYROXINE 100 MCG TABLET PO SCH (06:47)
[2018-06-22] MEDS: OMEPRAZOLE 20 MG CAPSULE PO SCH (06:47)
[2018-06-22] MEDS: TORSEMIDE 20 MG TABLET PO SCH (08:39)
[2018-06-22] MEDS: ROPINIROLE 3 MG TABLET PO SCH ×3 (08:39→21:01)
[2018-06-22] MEDS: SENNOSIDES 8.6 MG TABLET PO PRN (08:40)
[2018-06-22] MEDS: IRON POLYSACCHARIDE COMPLEX 150 MG CAPSULE PO SCH ×2 (08:40→21:02)
[2018-06-22] MEDS: CYANOCOBALAMIN (B-12) 500mcg TABLET PO SCH (08:40)
[2018-06-22] MEDS: POLYETHYL GLYCOL 3350 17gm PACKET PO SCH (08:46)
[2018-06-22] MEDS: DOCUSATE SODIUM 100 MG CAPSULE PO SCH ×2 (08:47→21:02)
[2018-06-22] MEDS: VITAMIN B COMPLEX + C TABLET PO SCH (09:42)
[2018-06-22] MEDS: TRAMADOL 50 MG TABLET PO PRN ×2 (14:55→21:02)
--- NOTE | 2018-06-22 15:41 | Progress Note ---
- Date 06/22/18 Subjective: Gudelia is seen while sitting in her recliner. She complains of pain to her hip but states she just took her pain medications. She denies any other complaints or concerns. No chest pain, shortness of breath, abdominal pain, nausea, vomiting or diarrhea. She received 1 unit PRBC on 06/21/18 with improvement of her hemoglobin. Hyponatremia improved as well. New hypokalemia today (K 3.5) which was treated with KCl 40 mEq. Appetite is stable and improving. Urinary output is adequate. Objective Vital signs: Temperature 98.0 F 06/22/18 08:25 Pulse Rate 71 06/22/18 08:25 Respiratory Rate 16 06/22/18 08:25 Blood Pressure 121/54 06/22/18 08:25 Pulse Oximetry 93 06/22/18 14:56 Height/Weight/BMI: Height 5 ft 2 in Weight 222 lb 3.615 oz Body Mass Index 40.2 Comments: Sitting in recliner. - Constitutional Present: no acute distress, well nourished, well developed, morbidly obese, cooperative - Routine HEENT Exam Head: Present: normocephalic, atraumatic Eye: Present: PERRL. Absent: conjunctival icterus ENT: Present: mucous membranes moist, oropharynx clear - Routine Respiratory Exam Present: decreased breath sounds. Absent: respiratory distress, wheezes - Routine Cardiovascular Exam Present: RRR, murmur - Routine Abdominal Exam Present: soft, normoactive bowel sounds, non distended, non tender - Routine Extremities Exam Present: edema, pulses intact - Routine Back/Spine/Pelvis Exam Back/Spine: Present: full ROM. Absent: vertebral tenderness - Routine Musculoskeletal Exam Musculoskeletal: Present: no clubbing or cyanosis, moving extremities well - Routine Skin Exam Present: dry, warm Comments: afebrile. - Routine Neurological Exam Present: alert, moving all extremities, hearing grossly intact, normal speech - Routine Psychiatric Exam Present: cooperative Results - Labs CBC & Chem 7: 06/22/18 04:59 06/22/18 04:59 Assessment and Plan Assessment and Plan: Assessment S/P left hip ORIF - 06/17/18, Dr. Locke Left 3 part intertrochanteric hip fracture secondary to mechanical fall Post-op respiratory failure with hypoxia Generalized weakness and debility with gait instability secondary to recent surgery Acute blood loss anemia, asymptomatic Questionable left radial head fracture CKD stage III Restless leg syndrome Hypertension Osteoarthritis Chronic anemia Hypothyroidism GERD Chronic lower extremity edema Chronic anemia Morbid obesity, BMI >40 Plan Overall, doing well and making gains. Continue to encourage therapies for strengthening and improvement in functional abilities. Lovenox x 30 days following surgery. Monitor closely for signs of bleeding. Patient currently breathing easily on room air. Continue to monitor. Oxygen as needed to maintain SAO2 >90%. Weaning as able. Patient does not use oxygen at home. Encourage incentive spirometry for pulmonary toileting. CXR unremarkable on 06/21/18. Weight continues to trend up. Lasix 20mg x 1 dose given following blood transfusion. Will give an additional 20mg IV x 1 dose now. Continue home torsemide 20mg daily. Continue to monitor daily weight closely. Hgb improved to 9.4 following 1 unit PRBC on 06/21/18. Hgb 9.6 today. Continue to monitor. S/P remote nephrostomy - follows with Dr. Klein. Patient reports pain to left arm is controlled. Continue to monitor closely for pain - may consider repeating x-ray if pain persists or worsens. Continue home metoprolol 25mg daily. Blood pressure controlled. IV hydralazine utilized during acute stay given NPO status. Monitor blood pressure closely. Recheck labs in AM to monitor electrolytes and renal function. DVT Prophylaxis: SCD's, Lovenox GI Prophylaxis: Omeprazole Resuscitation Status: Full Code - Time spent with patient Time with patient PN: 30 minutes - Physician Narrative Narrative: Date: 06/22/18 Time: 1733 Hospital Course Summary Disclaimer: The visit summary below is not to be considered part of the above Progress Note. Hospital Course: 06/19/18 S/P left hip ORIF - 06/17/18, Dr. Locke. * Agree with admission to IRU for continued therapy for strengthening and improvement in functional abilities. * Lovenox x 30 days following surgery. Monitor closely for signs of bleeding. * Kelley catheter remains in place. Will encourage bladder retraining and removal within next day or so. Post-op respiratory failure with hypoxia * Continue oxygen supplementation as indicated to maintain SAO2 >90%. Weaning as able. Patient does not use oxygen at home. * Encourage incentive spirometry for pulmonary toileting. Questionable left radial head fracture * Monitor closely for pain - may consider repeating x-ray if pain persists or worsens. Generalized weakness and debility with gait instability secondary to recent surgery. * Pain medications and treatment plans per Dr. Galdamez Acute blood loss anemia, asymptomatic. * Hgb 11.3 on admission prior to surgery -->8.8 today. Asymptomatic. Monitor closely. No signs of acute bleeding. * History of chronic anemia. Continue home iron and B12 supplementation. * Will monitor labs periodically throughout admission given current anemia and history of recent hypokalemia on admission and CKD. Hypertension. * Continue home metoprolol 25mg daily. IV hydralazine utilized during acute stay given NPO status. Monitor blood pressure closely. Restless leg syndrome. * Continue home requip 3mg TID. Hypothyroidism. * Continue home Synthroid 100mcg daily. TSH 2.26 on admission 06/17/18. GERD. * Continue home Prilosec. Chronic lower extremity edema. * Continue home torsemide 20mg daily. Reported home dry weight 220 lbs. Monitor daily weight and urinary output closely. CKD stage III. * Monitor renal function closely given anemia and continuation of home torsemide. * S/P remote nephrostomy - follows with Dr. Klein. Morbid obesity, BMI >40. Osteoarthritis. Upon discharge, patient's care will be returned to her PCP, Dr. Vazquez. Patient request to be a FULL CODE. 06/21/18 Continue to encourage therapies for strengthening and improvement in functional abilities. Lovenox x 30 days following surgery. Monitor closely for signs of bleeding. Continue oxygen supplementation as indicated to maintain SAO2 >90%. Weaning as able. Patient does not use oxygen at home. Encourage incentive spirometry for pulmonary toileting. Given prolonged need for supplemental oxygen and reported cough, will obtain CXR now - results pending. Suspect fluid overload as weight is up ~3 kgs since admission on 06/18/18. Continue home torsemide 20mg daily. Will give Lasix 20 following blood transfusion. Monitor daily weight closely. Patient reports pain to left arm is controlled. Continue to monitor closely for pain - may consider repeating x-ray if pain persists or worsens. Pain medications and treatment plans per Dr. Galdamez Hgb 11.3 on admission prior to surgery -->7.4 today. Lightheaded with standing. S/P remote nephrostomy - follows with Dr. Klein. Will give 1 unit PRBC now and recheck HH following transfusion. Continue to monitor blood counts closely. Continue home metoprolol 25mg daily. Blood pressure controlled. IV hydralazine utilized during acute stay given NPO status. Monitor blood pressure closely. Recheck labs in AM to monitor blood counts, electrolytes and renal function. 06/22/18 Overall, doing well and making gains. Continue to encourage therapies for strengthening and improvement in functional abilities. Lovenox x 30 days following surgery. Monitor closely for signs of bleeding. Patient currently breathing easily on room air. Continue to monitor. Oxygen as needed to maintain SAO2 >90%. Weaning as able. Patient does not use oxygen at home. Encourage incentive spirometry for pulmonary toileting. CXR unremarkable on 06/21/18. Weight continues to trend up. Lasix 20mg x 1 dose given following blood transfusion. Will give an additional 20mg IV x 1 dose now. Continue home torsemide 20mg daily. Continue to monitor daily weight closely. Hgb improved to 9.4 following 1 unit PRBC on 06/21/18. Hgb 9.6 today. Continue to monitor. S/P remote nephrostomy - follows with Dr. Klein. Patient reports pain to left arm is controlled. Continue to monitor closely for pain - may consider repeating x-ray if pain persists or worsens. Continue home metoprolol 25mg daily. Blood pressure controlled. IV hydralazine utilized during acute stay given NPO status. Monitor blood pressure closely. Recheck labs in AM to monitor electrolytes and renal function.
[2018-06-22] MEDS ORDERED: FUROSEMIDE 20 MG/2 ML INJECTION IVP ONE (15:44)
[2018-06-22] MEDS: SENNOSIDES 8.6 MG TABLET PO SCH (21:02)
[2018-06-22] MEDS: ENOXAPARIN 40 MG/0.4 ML INJECTION SQ SCH (23:14)
[2018-06-23] MEDS: OMEPRAZOLE 20 MG CAPSULE PO SCH (05:56)
[2018-06-23] MEDS: LEVOTHYROXINE 100 MCG TABLET PO SCH (05:56)
[2018-06-23] MEDS: HYDROCODONE/APAP 7.5 MG/325 MG TABLET PO PRN ×3 (05:56→21:24)
[2018-06-23] MEDS: ROPINIROLE 3 MG TABLET PO SCH ×3 (08:47→21:25)
[2018-06-23] MEDS: DOCUSATE SODIUM 100 MG CAPSULE PO SCH ×2 (08:47→21:25)
[2018-06-23] MEDS: SENNOSIDES 8.6 MG TABLET PO SCH ×2 (08:47→21:25)
[2018-06-23] MEDS: IRON POLYSACCHARIDE COMPLEX 150 MG CAPSULE PO SCH ×2 (08:48→21:25)
[2018-06-23] MEDS: CYANOCOBALAMIN (B-12) 500mcg TABLET PO SCH (08:48)
[2018-06-23] MEDS: POLYETHYL GLYCOL 3350 17gm PACKET PO SCH (08:49)
[2018-06-23] MEDS: TORSEMIDE 20 MG TABLET PO SCH (08:49)
[2018-06-23] MEDS: VITAMIN B COMPLEX + C TABLET PO SCH (10:06)
[2018-06-23] MEDS: TRAMADOL 50 MG TABLET PO PRN (11:47)
--- NOTE | 2018-06-23 11:53 | IRU Progress Note ---
- Subjective/Serverity of Illness Date: 06/23/18 But he was evaluated in her room on inpatient rehabilitation. Her requirement for oxygen has improved. She received a unit of packed red blood cells was probably help things. She is now able to maintain 90% oxygenation on room air fairly consistently. She continues to complain of significant pain in the left hip. We stood her up with therapy present. I inspected the left hip and there is no evidence of infection. The wound looks great. There is some ecchymosis posteriorly as anticipated. She reports pain is predominantly with transfers and with bearing weight. Does not bother her in bed. From a medical standpoint besides the left hip pain she continues to struggle with some acute blood loss anemia. Initial hemoglobin here was 8.8 rising to 9.4 the 9.6 and now back down to 8.7. We do not see any definite evidence of where the blood might be going. We will continue to monitor carefully. She has had acute respiratory failure with hypoxemia which appears to be resolving. She also has history of hypertension and her blood pressures appear to be fairly well controlled at the present time. From an occupational therapy standpoint she is able to bathe with standby assistance. Upper body dressing requires moderate assistance while lower body dressing requires standby assistance. She is able to transfer with moderate assistance. Physical therapy transfers are also with moderate assistance. She is able to ambulate with a front-wheeled walker 30 feet with total assistance of 1 person. Exam Vital Signs: Temperature 98.7 F 06/23/18 08:00 Pulse Rate 76 06/23/18 08:00 Respiratory Rate 22 06/23/18 08:00 Blood Pressure 147/67 H 06/23/18 08:00 Pulse Oximetry 93 06/23/18 11:03 Height/Weight/BMI: Height 1.57 m Weight 100.8 kg Body Mass Index 40.2 - Constitutional Present: moderate distress (left hip), well nourished, well developed, morbidly obese, cooperative - Routine HEENT Exam Eye: Present: EOMI ENT: Present: mucous membranes moist, oropharynx clear - Routine Respiratory Exam Present: CTA bilaterally. Absent: wheezes - Routine Cardiovascular Exam Present: RRR, S1, S2. Absent: murmur - Routine Abdominal Exam Present: soft, normoactive bowel sounds, non distended. Absent: tenderness - Routine Extremities Exam Present: normal capillary refill Comments: Inspection of the patient's left hip wound looks great. Some ecchymosis as anticipated posteriorly but no evidence of active infection. - Routine Skin Exam Present: dry, warm, ecchymosis - Routine Neurological Exam Present: alert, oriented X3, CN II-XII intact - Routine Psychiatric Exam Present: normal thought process, anxious. Absent: good insight, good judgment Results IRU - Labs Labs: Have reviewed her data and other providers notes. Have reviewed therapy notes. IRU A/P (1) S/P ORIF (open reduction internal fixation) fracture Problem details: 06/17/18 - Dr. Locke, left. Current visit: Yes Status: Acute Despite tramadol 100 mg plus hydrocodone 7.5 mg the patient continues to have significant pain in the left hip. This is mainly with weightbearing and transfers. Inspection of the left hip wound indicates there is no evidence of infection. We'll continue to work with the patient. I feel as though her pain however is a limiting factor. (2) Hypertension Qualifiers: Hypertension type: essential hypertension Qualified Code(s): I10 - Essential (primary) hypertension Current visit: Yes Status: Chronic Blood pressures appear to be unremarkable. (3) Acute respiratory failure with hypoxemia Current visit: Yes Status: Acute At the present time her requirement for oxygen appears to be improved. She is able to maintain adequate saturations on room air only. (4) Acute blood loss anemia Current visit: Yes Status: Acute Hemoglobin has improved with the packed red blood cells but is now back down a bit. (5) CKD (chronic kidney disease) stage 3, GFR 30-59 ml/min Current visit: Yes Status: Chronic DVT Prophylaxis: SCD's, Lovenox Resuscitation Status: Full Code - Course Hospital Course: Orlin Galdamez MD: 06/20/18 11:22 Pain management difficult. Nauseated today. Continues to require supplemental oxygen. Hemoglobin down to 8.8. 06/23/18 11:55 Pain management continues to be difficult. Oxygen requirements are less. Getting by on room air. Hemoglobin was up with transfusion but is now back down a bit. Cooperative with therapy but progress limited due to pain. - Interventions to Obtain Goals PT Treatment Plan: Balance/Proprioception, Functional Activities, Gait Training , Patient/Family Education, Therapeutic Exercise OT Treatment Plan: ADL (Basic Care), Balance Training, IADL, Pt./Family Education, Ther. Exercise for ADL Goals Progress/Modifications: Is been difficult to know how to assess her left hip pain. It is uncertain if this is reduced pain tolerance or something else is going on. Inspection of the wound indicates no evidence of infection. Has been seen by orthopedics and things seem to be going adequately. We will continue to encourage her to make functional progress. Pain medications have been adjusted. Hemoglobin is back down after it was improved with transfusion. Her oxygen requirements are improved. Have discussed with therapy. Progress is slow.
[2018-06-23] MEDS: ENOXAPARIN 40 MG/0.4 ML INJECTION SQ SCH (22:49)
[2018-06-24] MEDS: TRAMADOL 50 MG TABLET PO PRN (05:54)
[2018-06-24] MEDS: OMEPRAZOLE 20 MG CAPSULE PO SCH (05:55)
[2018-06-24] MEDS: LEVOTHYROXINE 100 MCG TABLET PO SCH (05:55)
[2018-06-24] MEDS: ROPINIROLE 3 MG TABLET PO SCH ×3 (08:03→20:04)
[2018-06-24] MEDS: POLYETHYL GLYCOL 3350 17gm PACKET PO SCH (08:03)
[2018-06-24] MEDS: DOCUSATE SODIUM 100 MG CAPSULE PO SCH ×2 (08:03→20:04)
[2018-06-24] MEDS: TORSEMIDE 20 MG TABLET PO SCH (08:04)
[2018-06-24] MEDS: SENNOSIDES 8.6 MG TABLET PO SCH ×2 (08:05→20:04)
[2018-06-24] MEDS: CYANOCOBALAMIN (B-12) 500mcg TABLET PO SCH (08:05)
[2018-06-24] MEDS: IRON POLYSACCHARIDE COMPLEX 150 MG CAPSULE PO SCH ×2 (08:05→20:04)
[2018-06-24] MEDS: VITAMIN B COMPLEX + C TABLET PO SCH (08:05)
[2018-06-24] MEDS: ACETAMINOPHEN 325 MG TABLET PO PRN (08:10)
--- NOTE | 2018-06-24 08:51 | XRay Report ---
Indication: post op increased pain, no fall/trauma PROCEDURE: XR hip LT min 2V: Encounter: Initial Comparison: Fluoroscopy dated June 17, 2018 Findings: Internally fixed left femoral neck fracture is again noted. No evidence of hardware loosening or failure. No new fracture. Impression: Unchanged appearance of the internally fixed left femoral neck fracture. .
[2018-06-24] MEDS: HYDROCODONE/APAP 7.5 MG/325 MG TABLET PO PRN ×3 (11:04→19:46)
--- NOTE | 2018-06-24 12:42 | IRU Progress Note ---
- Subjective/Serverity of Illness Date: 06/24/18 Gudelia states that her hip pain is much improved. However, her cooperation with therapy is quite variable. At times she will cooperate in that time she does not want to do much. I asked her if she wanted to go back to her assisted- living apartment and it is not clear if she does or not. She denies any chest pain. Does report easy fatigability and tiredness. Denies actual shortness of breath but does display some degree of dyspnea when she exerts herself. She continues to require supplemental oxygen at a low rate (0.5-1 L/m). Her lungs do sound clear at the present time. She does have acute blood loss anemia with hemoglobin down a bit of 8.7 worse previously it was over 9 g percent. No evidence of new blood loss however. Radiograph of the left hip is reviewed and is unremarkable. Patient was advised. Exam Vital Signs: Temperature 97.8 F 06/24/18 07:53 Pulse Rate 87 06/24/18 07:53 Respiratory Rate 20 06/24/18 07:53 Blood Pressure 164/66 H 06/24/18 07:53 Pulse Oximetry 96 06/24/18 10:28 Height/Weight/BMI: Height 1.57 m Weight 99.8 kg Body Mass Index 40.2 - Constitutional Present: mild distress (fatigue), well nourished, well developed, cooperative - Routine HEENT Exam Eye: Present: EOMI ENT: Present: mucous membranes moist, oropharynx clear - Routine Respiratory Exam Present: CTA bilaterally. Absent: wheezes - Routine Cardiovascular Exam Present: RRR, S1, S2, murmur - Routine Abdominal Exam Present: soft, normoactive bowel sounds, non distended. Absent: tenderness - Routine Extremities Exam Present: normal capillary refill - Routine Skin Exam Present: dry, warm - Routine Neurological Exam Present: alert, oriented X3, CN II-XII intact - Routine Psychiatric Exam Present: normal affect IRU A/P (1) S/P ORIF (open reduction internal fixation) fracture Problem details: 06/17/18 - Dr. Locke, left. Current visit: Yes Status: Acute Patient states that her pain management is improved. However cooperation with therapy is variable. (2) Hypertension Qualifiers: Hypertension type: essential hypertension Qualified Code(s): I10 - Essential (primary) hypertension Current visit: Yes Status: Chronic Her blood pressures are variable. At times she is able to maintain a good blood pressure in the 130 range and at times it is up to 160. (3) Acute respiratory failure with hypoxemia Current visit: Yes Status: Acute She continues to require supplemental oxygen from time to time. (4) Acute blood loss anemia Current visit: Yes Status: Acute (5) CKD (chronic kidney disease) stage 3, GFR 30-59 ml/min Current visit: Yes Status: Chronic DVT Prophylaxis: SCD's, Lovenox Resuscitation Status: Full Code - Course Hospital Course: Orlin Galdamez MD: 06/20/18 11:22 Pain management difficult. Nauseated today. Continues to require supplemental oxygen. Hemoglobin down to 8.8. 06/23/18 11:55 Pain management continues to be difficult. Oxygen requirements are less. Getting by on room air. Hemoglobin was up with transfusion but is now back down a bit. Cooperative with therapy but progress limited due to pain. 06/24/18 12:40 Progress with therapy is variable. Pain management improved. - Interventions to Obtain Goals PT Treatment Plan: Balance/Proprioception, Functional Activities, Gait Training , Patient/Family Education, Therapeutic Exercise OT Treatment Plan: ADL (Basic Care), Balance Training, IADL, Pt./Family Education, Ther. Exercise for ADL Goals Progress/Modifications: It is not clear to me the degree of motivation for Ms. Ignacio. She says that her pain management is improved significantly. However she has easy fatigability. Her ability to cooperate with therapy is quite variable. Her lungs do sound clear at the present time. She does have a systolic murmur as before. We do have a multidisciplinary conference today for further discussion in this regard.
--- NOTE | 2018-06-24 13:42 | IRU Team Meeting ---
IRU Team Meeting - Nursing Bladder Assistive Devices Utilized:: Bedside Commode Bladder Management Level of Assist: Maximal Assistance Bladder Frequency of Accidents: No accidents Bowel Assistive Devices Utilized:: Medication Bowel Management Level of Assist: Total Assistance Bowel Frequency of Accidents: No accidents Vital Signs: Vital Signs - 24 hr 06/23/18 14:57 06/23/18 14:58 06/23/18 15:10 Temperature Pulse Rate Respiratory Rate Blood Pressure Pulse Oximetry 85 L 1 L 94 06/23/18 16:00 06/23/18 19:14 06/23/18 19:37 Temperature 98.2 F 97.9 F Pulse Rate 68 75 Respiratory Rate 20 16 Blood Pressure 127/53 133/61 Pulse Oximetry 97 95 93 06/24/18 02:10 06/24/18 07:53 06/24/18 10:28 Temperature 97.8 F Pulse Rate 87 Respiratory Rate 20 Blood Pressure 164/66 H Pulse Oximetry 96 92 96 Current Medications: Acetaminophen (Tylenol) 325 - 650 mg PO Q5H PRN PRN Reason: Discomfort Last Admin: 06/24/18 08:10 Dose: 650 mg Hydrocodone Bitart/Acetaminophen (Williams 7.5/325) 1 tab PO Q4H PRN PRN Reason: Pain Last Admin: 06/24/18 11:04 Dose: 1 tab Cyanocobalamin (Vit. B-12) 500 mcg PO DAILY [facility] Last Admin: 06/24/18 08:05 Dose: 500 mcg Diphenhydramine HCl (Benadryl) 25 mg PO Q6H PRN PRN Reason: Itching Docusate Sodium (Colace) 100 mg PO BID [facility] Last Admin: 06/24/18 08:03 Dose: 100 mg Enoxaparin Sodium (Lovenox) 40 mg SQ Q24H [facility] Last Admin: 06/23/18 22:49 Dose: 40 mg Levothyroxine Sodium (Synthroid) 100 mcg PO ACB [facility] Last Admin: 06/24/18 05:55 Dose: 100 mcg Magnesium Hydroxide (Mom) 30 ml PO DAILY PRN PRN Reason: Constipation Metoprolol Succinate (Toprol Xl) 25 mg PO DAILY [facility] Last Admin: 06/24/18 08:04 Dose: 25 mg Multivitamins (Total B + C) 1 tab PO DAILY [facility] Last Admin: 06/24/18 08:05 Dose: 1 tab Omeprazole (Prilosec) 20 mg PO ACB [facility] Last Admin: 06/24/18 05:55 Dose: 20 mg Polyethylene Glycol (Miralax) 17 gm PO DAILY [facility] Last Admin: 06/24/18 08:03 Dose: 17 gm Polysaccharide Iron Complex (Niferex) 150 mg PO BID [facility] Last Admin: 06/24/18 08:05 Dose: 150 mg Ropinirole HCl (Requip) 3 mg PO TID [facility] Last Admin: 06/24/18 08:03 Dose: 3 mg Senna (Senna Lax) 17.2 mg PO DAILY PRN PRN Reason: Constipation Last Admin: 06/22/18 08:40 Dose: 17.2 mg Senna (Senna Lax) 8.6 mg PO BID [facility] Last Admin: 06/24/18 08:05 Dose: 8.6 mg Sodium Chloride (Normal Saline) 500 ml IV PRN PRN Torsemide (Demadex) 20 mg PO DAILY [facility] Last Admin: 06/24/18 08:04 Dose: 20 mg Tramadol HCl (Ultram) 50 - 100 mg PO Q6H PRN PRN Reason: Pain Last Admin: 06/24/18 05:54 Dose: 100 mg Current Medical Issues: Status post left hip fracture and repair, benign essential hypertension, acute blood loss anemia superimposed upon chronic anemia, acute hypoxemic respiratory failure Comments: I certify that I personally led the interdisciplinary team meeting and agree with comments, barriers and goals indicated. Team meeting was held in the patient's room with the patient and the following family members present: Patient's cousin (=DPOA) and his Gudelia has struggled with pain management despite tramadol 100 mg and hydrocodone 7.5 mg. She finds a greater benefit from hydrocodone so we will discontinue the tramadol. She has been reluctant to participate in therapy and has to be significantly motivated and encouraged. She does display a degree of depression and anxiety and hopelessness. Patient's blood pressures range from 133 up to 164. Continues to require supplemental oxygen at low flow rates from time to time. Hemoglobin 8.7. Repeat hip radiograph negative. - Physical Therapy Bed, Chair, Wheelchair Transfer Assist: Contact Guard Assistance, Maximal Assistance, 1 Person Assist Ambulation Ability: Total Assistance, 1 Person Assist Ambulation Distance: 12 Wheelchair Propulsion Ability: Maximal Assistance, 1 Person Assist Wheelchair Propulsion Distance: 109 Stair Climbing Ability: Patient Refuses Car Transfer Ability: Patient Refuses Comments: Patient requires significant motivation to participate with therapy. However she was able to ambulate 82 feet yesterday. Less distance noted today. She is standby assist for chair transfers. She refused bed mobility initially this morning. - Occupational Therapy Eating Ability: Independent Grooming Ability: Patient Refuses Bathing Ability: Moderate Assistance Upper Body Dressing Ability: Stand By Assist/Supervision Lower Body Dressing Ability: Maximal Assistance Tub Transfer Assist: Patient Refuses Toileting Assist: Moderate Assistance Toilet Transfer Assist: Moderate Assistance Comments: She is using assistive devices including a long handled shoe horn, traffic and transport planner and sock aid. She displays poor motivation with occupational therapy. Progress is slow. Requires constant encouragement. - Goals Physical Therapy Goals: 06/24/18: 1.) Consistently ambulate at least 75 feet. 2.) Consistently require stand-by assist with transfers. 3.) Participate in full therapy session. Occupational Therapy Goals: OT goals 06/24/18: 1.) Lower body dressing with modified independence. 2.) Toileting with modified independence. 3.) Increase sustained standing tolerance to 5 minutes to facilitate activities of daily living. - Barriers to Discharge Barriers to Attaining Goals: Weakness (patient displays reduced strength. Progressive resistive exercises are offered.), Other (patient has reduced motivation. Verbal cues and encouragement are provided.) - Care Plan Anticipated Length of Stay (days): 2 Anticipated DC Destination: Home, Self Care, Home Health Service I have led this team conference and agree with the plan. Interventions/Goals: At present, patient has been somewhat equivocal as to her goals. Most the time she wants to go back home but she displays and talks about poor motivation. She is encouraged to fully participate with therapy 3 hours daily. If she is able to make additional progress we will continue working with her. Otherwise we will anticipate a safe transition to skilled care in a couple of days.
[2018-06-24] MEDS: ENOXAPARIN 40 MG/0.4 ML INJECTION SQ SCH (22:35)
[2018-06-25] MEDS: HYDROCODONE/APAP 7.5 MG/325 MG TABLET PO PRN ×4 (00:27→20:02)
[2018-06-25] MEDS: OMEPRAZOLE 20 MG CAPSULE PO SCH (05:46)
[2018-06-25] MEDS: LEVOTHYROXINE 100 MCG TABLET PO SCH (05:46)
[2018-06-25] MEDS: DOCUSATE SODIUM 100 MG CAPSULE PO SCH ×2 (09:03→20:13)
[2018-06-25] MEDS: CYANOCOBALAMIN (B-12) 500mcg TABLET PO SCH (09:03)
[2018-06-25] MEDS: ROPINIROLE 3 MG TABLET PO SCH ×3 (09:04→20:06)
[2018-06-25] MEDS: IRON POLYSACCHARIDE COMPLEX 150 MG CAPSULE PO SCH ×2 (09:04→21:03)
[2018-06-25] MEDS: SENNOSIDES 8.6 MG TABLET PO SCH ×2 (09:05→20:07)
[2018-06-25] MEDS: VITAMIN B COMPLEX + C TABLET PO SCH (09:05)
[2018-06-25] MEDS: TORSEMIDE 20 MG TABLET PO SCH (09:05)
[2018-06-25] MEDS: POLYETHYL GLYCOL 3350 17gm PACKET PO SCH (09:07)
[2018-06-26] MEDS: ENOXAPARIN 40 MG/0.4 ML INJECTION SQ SCH (00:30)
[2018-06-26] MEDS: HYDROCODONE/APAP 7.5 MG/325 MG TABLET PO PRN ×3 (01:53→12:07)
[2018-06-26] MEDS: OMEPRAZOLE 20 MG CAPSULE PO SCH (06:22)
[2018-06-26] MEDS: LEVOTHYROXINE 100 MCG TABLET PO SCH (06:23)
[2018-06-26 08:02] VITALS: BP 149/67; PULSE 77; RESP 16; TEMP 98.1
[2018-06-26] MEDS: VITAMIN B COMPLEX + C TABLET PO SCH (08:28)
[2018-06-26] MEDS: DOCUSATE SODIUM 100 MG CAPSULE PO SCH (08:28)
[2018-06-26] MEDS: ROPINIROLE 3 MG TABLET PO SCH (08:28)
[2018-06-26] MEDS: SENNOSIDES 8.6 MG TABLET PO SCH (08:29)
[2018-06-26] MEDS: CYANOCOBALAMIN (B-12) 500mcg TABLET PO SCH (08:29)
[2018-06-26] MEDS: TORSEMIDE 20 MG TABLET PO SCH (08:29)
[2018-06-26] MEDS: POLYETHYL GLYCOL 3350 17gm PACKET PO SCH (08:31)
[2018-06-26] MEDS: IRON POLYSACCHARIDE COMPLEX 150 MG CAPSULE PO SCH (08:36)
[2018-06-26 09:24] VITALS: O2SAT 99
--- NOTE | 2018-06-26 10:34 | IRU Progress Note ---
- Subjective/Serverity of Illness Date: 06/26/18 Gudelia reports to me that her pain is fairly well-controlled. However she continues to not be able to participate in therapy as readily as desired. At this point she is not making progress and arrangements have been made for transfer to skilled care at [facility]. She reports some dyspnea with activity although states that her dyspnea is stable at rest. Continues to require supplemental oxygen. Exam Vital Signs: Temperature 98.1 F 06/26/18 08:00 Pulse Rate 77 06/26/18 08:00 Respiratory Rate 16 06/26/18 08:00 Blood Pressure 149/67 H 06/26/18 08:00 Pulse Oximetry 99 06/26/18 09:23 Height/Weight/BMI: Height 1.57 m Weight 99.2 kg Body Mass Index 40.2 - Constitutional Present: well nourished, well developed, cooperative (but requires motivation.) - Routine HEENT Exam Eye: Present: EOMI ENT: Present: mucous membranes moist, oropharynx clear - Routine Respiratory Exam Present: decreased breath sounds, CTA bilaterally. Absent: wheezes - Routine Cardiovascular Exam Present: RRR, S1, S2, murmur - Routine Abdominal Exam Present: soft, normoactive bowel sounds, non distended. Absent: tenderness - Routine Extremities Exam Present: edema (trace at ankles), normal capillary refill - Routine Skin Exam Present: dry, warm - Routine Neurological Exam Present: alert, oriented X3, CN II-XII intact - Routine Psychiatric Exam Present: anxious Results IRU - Labs Labs: Have reviewed other providers notes and other chart data. IRU A/P (1) S/P ORIF (open reduction internal fixation) fracture Problem details: 06/17/18 - Dr. Locke, left. Current visit: Yes Status: Acute Clinically and radiographically the fracture is stable. Her pain is more well controlled at present. (2) Hypertension Qualifiers: Hypertension type: essential hypertension Qualified Code(s): I10 - Essential (primary) hypertension Current visit: Yes Status: Chronic Patient's blood pressure appears to be adequately controlled. (3) Acute respiratory failure with hypoxemia Current visit: Yes Status: Acute She continues to require supplemental oxygen at 1-2 L/m to maintain saturations above 90%. Her lungs continue to sound clear. (4) Acute blood loss anemia Current visit: Yes Status: Acute (5) CKD (chronic kidney disease) stage 3, GFR 30-59 ml/min Current visit: Yes Status: Chronic DVT Prophylaxis: SCD's, Lovenox Resuscitation Status: Full Code - Course Hospital Course: Orlin Galdamez MD: 06/20/18 11:22 Pain management difficult. Nauseated today. Continues to require supplemental oxygen. Hemoglobin down to 8.8. 06/23/18 11:55 Pain management continues to be difficult. Oxygen requirements are less. Getting by on room air. Hemoglobin was up with transfusion but is now back down a bit. Cooperative with therapy but progress limited due to pain. 06/24/18 12:40 Progress with therapy is variable. Pain management improved. 06/26/18 10:33 At this point, patient is more appropriate for skilled level due to her exercise tolerance. - Interventions to Obtain Goals PT Treatment Plan: Balance/Proprioception, Functional Activities, Gait Training , Patient/Family Education, Therapeutic Exercise OT Treatment Plan: ADL (Basic Care), Balance Training, IADL, Pt./Family Education, Ther. Exercise for ADL
--- NOTE | 2018-06-26 11:30 | Letter to Referring Physician ---
Dear Dr. Vazquez, This is a brief note to bring you up-to-date on the status of Gudelia Ignacio and her stay on the acute inpatient rehabilitation unit at [facility]. As you are likely aware, this patient was admitted to 2017 for repair of left hip fracture by Dr. Locke. She underwent ORIF of left hip fracture with intramedullary fixation. She did have some hemoglobin dropped from 11.3 down to 8.8 subsequently and also require supplemental oxygen postoperatively. The patient was stabilized while on the acute level and admitted to inpatient rehabilitation unit at [facility] on June 18, 2018. While on inpatient rehabilitation, this patient was seen by occupational therapy and physical therapy and improved overall in their functional ability. We also monitored and managed the patient's hypoxemia and acute blood loss anemia and pain management while on Acute Rehab. Please see a copy of the history and physical examination as well as discharge summary faxed separately for further details. She found it difficult to cooperate with 3 hours of therapy daily. She tended to plateau and therefore it was felt that skilled care would be a more appropriate level for her. She is transferred to [facility] in [facility] on 06/26 for continued PT and OT. She will need to have her hemoglobin monitored and oxygen saturation monitor. She currently requires 1-2 L/m by nasal cannula. Clinically her lungs sound clear. Please note I did give her a prescription for hydrocodone 7.5 mg #40 to take 1 every 4 hours as needed for pain at the time of dismissal. Thank you for allowing us to be involved in this nice patient's care. Please contact me directly should you have any questions regarding their stay on the inpatient rehabilitation unit. Sincerely, Orlin Galdamez M.D.
--- NOTE | 2018-06-26 11:31 | Extended Care Facility Orders ---
Admission Orders Admit to:: Jail, Swing Bed-Non [facility] Allergies/Adverse Reactions: Allergies No Known Allergies Allergy (Verified 06/17/18 18:53) Admitting Diagnosis: s/p ORIF hip fracture Admitting Physician: Orlin Galdamez MD Attending Physician: Orlin Galdamez MD Code Status: Full Code Anticiapted Length of Stay: 30 days or less Rehab Potential: fair Rehab Prognosis: fair Diet: 06/18/18 Breakfast Regular Diet [DIET] Diet Modifications: Evaluations/Treatment: PT, OT, as needed Jail Certification: I certify that SNF services are required to be given on an inpatient basis because of the patient's need for fdc care on a continuing basis for the condition(s) for which he/she received inpatient hospital services prior to his/her transfer to the SNF. SNF inpatient care is necessary for the following reasons: Requires close monitoring of her pain and provision of adequate pain relief. She requires activities between therapy sessions to increase her endurance. She requires close monitoring of her oxygen status and supplementation of oxygen per nasal cannula. Indication for Jail: Other (hypoxemia) - Additional Information In Event of Arrest: Start CPR,call 911,send patient to the ER Resident is Aware of Diagnosis: Yes Referrals: Shara Vazquez MD [Primary Care Provider] - (Dr. Donna Vazquez on 07/10/18 at 9:45 am for Hosp. follow-up. [address] [id number]) Ryan Locke MD [Physician] - 2 Weeks (f/u 1-2 weeks)
--- NOTE | 2018-06-26 17:03 | Discharge Summary ---
Discharge Information Date of admission: 06/18/18 15:23 Anticipated date of discharge: 06/26/18 Attending Physician: Orlin Galdamez MD Primary care physician: Shara Vazquez MD Consults: 06/18/18 15:51 Physician Consult [CONS] Routine Consulting Provider: Richard Veronica Reason For Exam: medical management Ordering Provider has Notified Feller Machine Operator: No - Discharge Diagnosis (1) S/P ORIF (open reduction internal fixation) fracture Status: Acute (2) Hypertension Status: Chronic (3) Acute respiratory failure with hypoxemia Status: Acute (4) Acute blood loss anemia Status: Acute (5) CKD (chronic kidney disease) stage 3, GFR 30-59 ml/min Status: Chronic 1. Status post open reduction internal fixation left hip fracture 2. Benign essential hypertension 3. Acute hypoxemic respiratory failure 4. Acute blood loss anemia 5. Chronic kidney disease, Stage III - Laboratory Labs: 06/26/18 04:22 06/26/18 04:22 History of Present Illness HPI: Ms. Ignacio is a pleasant 87-year-old female from [facility]. She had fallen on pavement outdoors. She was initially seen at [facility] in [facility] and then transferred to [facility] where she was admitted on 06/17/2018. Dr. Ryan Locke took her to surgery on the same date to repair a left three-part intertrochanteric hip fracture with ORIF with intramedullary fixation. She tolerated the surgery well. Patient did have some chronic anemia but had superimposed acute blood loss anemia. Initial hemoglobin was 11.3 dropping to 10.6 then 8.8. The patient did require some supplemental oxygen at low flow rates. She sustained multiple functional deficits due to this fracture and was transferred to acute inpatient rehabilitation on 06/18/2018 for a multidisciplinary approach to her recovery. Hospital Course This is a general summary of the patient's hospital course. For more details refer to the complete medical record. The patient was admitted to acute inpatient rehabilitation where she was followed by the hospitalist service as well as by Dr. Galdamez. Her initial hemoglobin was 8.8. Her final hemoglobin was 8.7 on 06/23/18. Creatinine remains stable at 1.0 although estimated creatinine clearance is 44. Sodium was slightly low at 132 but upon dismissal was 137. Pain management was difficult with regard to the left hip. However there was no evidence of infection based on inspection of the wound. Plain radiograph of the hip on 06/23/2018 failed to demonstrate any abnormalities of concern. Pain management did improve subsequently. She continued to require supplemental oxygen off and on, between 0.5 and 1 L/m. This was adequate to maintain her saturations above 90%. Etiology of the hypoxemia is likely a combination of advanced age with senescent lung plus the anemia. The following levels of functional competence are to be considered preliminary information. The reader is encouraged to refer to actual therapy notes and reports for specific details. The patient was followed by physical therapy while on acute inpatient rehabilitation. At the conclusion of her stay, the following functional competencies were identified: She was able to transfer with standby to sit to stand level. She was able to ambulate 62 feet with standby assistance with a front-wheeled walker. The patient did require much motivation to participate in therapy. The patient was followed by occupational therapy while on acute inpatient rehabilitation. At the conclusion of her stay, the following functional competencies were identified: She continued to require maximum encouragement to participate in therapy. She was able to bathe with minimum assistance. She was able to dress upper body with modified independent level but required moderate assistance for lower extremity dressing. Toileting required moderate assistance. She continued to require hydrocodone 7.5 mg and a prescription for 40 tablets was provided at the time of dismissal. Hospital course: 06/19/18 S/P left hip ORIF - 06/17/18, Dr. Locke. * Agree with admission to IRU for continued therapy for strengthening and improvement in functional abilities. * Lovenox x 30 days following surgery. Monitor closely for signs of bleeding. * Kelley catheter remains in place. Will encourage bladder retraining and removal within next day or so. Post-op respiratory failure with hypoxia * Continue oxygen supplementation as indicated to maintain SAO2 >90%. Weaning as able. Patient does not use oxygen at home. * Encourage incentive spirometry for pulmonary toileting. Questionable left radial head fracture * Monitor closely for pain - may consider repeating x-ray if pain persists or worsens. Generalized weakness and debility with gait instability secondary to recent surgery. * Pain medications and treatment plans per Dr. Galdamez Acute blood loss anemia, asymptomatic. * Hgb 11.3 on admission prior to surgery -->8.8 today. Asymptomatic. Monitor closely. No signs of acute bleeding. * History of chronic anemia. Continue home iron and B12 supplementation. * Will monitor labs periodically throughout admission given current anemia and history of recent hypokalemia on admission and CKD. Hypertension. * Continue home metoprolol 25mg daily. IV hydralazine utilized during acute stay given NPO status. Monitor blood pressure closely. Restless leg syndrome. * Continue home requip 3mg TID. Hypothyroidism. * Continue home Synthroid 100mcg daily. TSH 2.26 on admission 06/17/18. GERD. * Continue home Prilosec. Chronic lower extremity edema. * Continue home torsemide 20mg daily. Reported home dry weight 220 lbs. Monitor daily weight and urinary output closely. CKD stage III. * Monitor renal function closely given anemia and continuation of home torsemide. * S/P remote nephrostomy - follows with Dr. Klein. Morbid obesity, BMI >40. Osteoarthritis. Upon discharge, patient's care will be returned to her PCP, Dr. Vazquez. Patient request to be a FULL CODE. 06/21/18 Continue to encourage therapies for strengthening and improvement in functional abilities. Lovenox x 30 days following surgery. Monitor closely for signs of bleeding. Continue oxygen supplementation as indicated to maintain SAO2 >90%. Weaning as able. Patient does not use oxygen at home. Encourage incentive spirometry for pulmonary toileting. Given prolonged need for supplemental oxygen and reported cough, will obtain CXR now - results pending. Suspect fluid overload as weight is up ~3 kgs since admission on 06/18/18. Continue home torsemide 20mg daily. Will give Lasix 20 following blood transfusion. Monitor daily weight closely. Patient reports pain to left arm is controlled. Continue to monitor closely for pain - may consider repeating x-ray if pain persists or worsens. Pain medications and treatment plans per Dr. Galdamez Hgb 11.3 on admission prior to surgery -->7.4 today. Lightheaded with standing. S/P remote nephrostomy - follows with Dr. Klein. Will give 1 unit PRBC now and recheck HH following transfusion. Continue to monitor blood counts closely. Continue home metoprolol 25mg daily. Blood pressure controlled. IV hydralazine utilized during acute stay given NPO status. Monitor blood pressure closely. Recheck labs in AM to monitor blood counts, electrolytes and renal function. 06/22/18 Overall, doing well and making gains. Continue to encourage therapies for strengthening and improvement in functional abilities. Lovenox x 30 days following surgery. Monitor closely for signs of bleeding. Patient currently breathing easily on room air. Continue to monitor. Oxygen as needed to maintain SAO2 >90%. Weaning as able. Patient does not use oxygen at home. Encourage incentive spirometry for pulmonary toileting. CXR unremarkable on 06/21/18. Weight continues to trend up. Lasix 20mg x 1 dose given following blood transfusion. Will give an additional 20mg IV x 1 dose now. Continue home torsemide 20mg daily. Continue to monitor daily weight closely. Hgb improved to 9.4 following 1 unit PRBC on 06/21/18. Hgb 9.6 today. Continue to monitor. S/P remote nephrostomy - follows with Dr. Klein. Patient reports pain to left arm is controlled. Continue to monitor closely for pain - may consider repeating x-ray if pain persists or worsens. Continue home metoprolol 25mg daily. Blood pressure controlled. IV hydralazine utilized during acute stay given NPO status. Monitor blood pressure closely. Recheck labs in AM to monitor electrolytes and renal function. Time spent with patient: discharge greater than 30 minutes Resuscitation Status: Full Code Discharge Plan - Med Rec/Dispo Referrals/Follow Up: Shara Vazquez MD [Primary Care Provider] - (Dr. Donna Vazquez on 07/10/18 at 9:45 am for Hosp. follow-up. [address] [address]) Ryan Locke MD [Physician] - 2 Weeks (f/u 1-2 weeks) [place] Instructions: Fall Prevention for Older Adults (GEN) Prescriptions: New Sennosides [Senna Lax] 8.6 mg PO BID tab Milk of Magnesia [Mom] 30 ml PO DAILY PRN udc PRN Reason: Constipation Enoxaparin Sodium [Lovenox] 40 mg SQ Q24H syringe Hydrocodone/APAP 7.5/325 [Thatcher 7.5/325] 1 tab PO Q4H PRN #40 tab PRN Reason: Pain PEG 3350 17gm PACKET [Miralax] 17 gm PO DAILY packet Continue Docusate Sodium [Colace] 1 cap PO PRN PRN PRN Reason: Stool Softening Levothyroxine Sodium 100 mcg PO DAILY Ropinirole [Requip] 3 mg PO TID Omeprazole Magnesium [Prilosec Otc] 20 mg PO DAILY C,E,Zinc,Copper 11/Egtna3s/Lut [Ocuvite Adult 50 Plus Softgel] 1 each PO DAILY Iron Polysaccharide Complex [Niferex] 1 cap PO BID Calcium Carb/D3/Magnesium/Zinc [Mahesh Mag Zinc-D3 Tablet] 1 each PO DAILY Vitamin B Complex [Super B-50 Complex] 1 each PO DAILY Ergocalciferol (Vitamin D2) [Vitamin D2] 1 tab PO DAILY Metoprolol Succinate (XL) [Toprol Xl] 25 mg PO DAILY Torsemide [Demadex] 1 tab PO DAILY Discontinued Tramadol HCl [Ultram] 25 mg PO BID Vit C/Vit E/Lutein/Min/Caspian-3 [Ocuvite Softgel] 1 cap PO DAILY - Disposition 61 To Any Swing Bed - Dismissal Complete Discharge Instructions are:: Complete
== END 2018-06-26 13:30 | disposition swing bed (61) | DRG 559 ==
PROVIDERS: ADMIT Internal Medicine; ATTEND Internal Medicine